=== PATIENT | female | born 1945 | race Caucasian/White ===

== ENCOUNTER 2019-11-13 13:06 | Inpatient (IN) | payer MEDICARE ==
[~2019-11-13] VITALS: Ht 157.4 cm; Wt 71.1 kg
[~2019-11-13 13:06] MED LIST: AZIT-21 PO; EST.625T; ESTR0.5T PO; FLUT1DIS3 IH; IPRA3AMP11 INH; MTP25TSR PO; NF-LEVTH75 PO; PRD50T PO; PRED10TA PO
[2019-11-13] MEDS ORDERED: methylPREDNISolone 125 MG (Solu-MEDROL) VIAL IV STA (13:27)
[2019-11-13] MEDS ORDERED: RT-ALBUTEROL/IPRATROPIUM 3 ML (DUONEB) VIAL INH ONE (13:30)
[2019-11-13] MEDS ORDERED: DEXAMETHASONE 4 MG/ML SDV (DECADRON) IH ONE (13:30)
--- NOTE | 2019-11-13 13:38 | ED Respiratory ---
General Chief Complaint: Respiratory Problems Stated Complaint: SOA Nursing Triage Note: TO ROOM C/O INCREASE SOA WHEN WALKING. PMH OF COPD Source: patient, old records History of Present Illness Date Seen by Provider: Nov 13, 2019 Time Seen by Provider: 13:10 Initial Comments PT ARRIVES VIA POV FROM HOME--AMBULATES IN ON HER OWN C/O SHORTNESS OF BREATH, WORSE WITH EXERTION PT HAS COPD AND WEARS O2 AT 2L/NC AT HS PRN. HAS HAD TO USE O2 MORE OFTEN OVER THE LAST MONTH STATES SHE HAS HAD A PRODUCTIVE COUGH FOR OVER A MONTH--YELLOW SPUTUM WAS SEEN AT DR. DUBON'S OFFICE A MONTH AGO, AND WAS GIVEN RX FOR UNKNOWN ANTIBIOTIC AND A STEROID SHOT. STATES SYMPTOMS WERE GETTING BETTER, BUT WERE NOT GONE. THEN A WEEK OR MORE AGO, STARTED GETTING WORSE AGAIN NO KNOWN FEVER NO CHEST PAIN NO SWELLING IN LEGS/ FEET OR PAIN IN [place] HAS NEBULIZER, AND USED IT AT NOON--HELPED SOME. PCP: DR. DUBON Allergies and Home Medications Allergies Coded Allergies: hydrocodone (Unverified Allergy, Mild, SEVERE VOMITING, 08/05/08) propoxyphene (Unverified Allergy, Mild, SEVERE VOMITING, 08/05/08) Home Medications Albuterol/Ipratropium 3 Ml Nebu, 3 ML INH Q2HR PRN for SHORTNESS OF BREATH Prescribed by: MARÍA DUBON on 04/09/15 0707 Albuterol/Ipratropium 3 Ml Nebu, 3 ML INH RTQID Prescribed by: MARÍA DUBON on 04/09/15 0707 Estradiol 0.5 Mg Tablet, 0.5 MG PO HS, (Reported) Fluticasone/Salmeterol 1 Each Disk.w.dev, 0 IH BID 1 PUFF Prescribed by: NORA MCKEON on 04/09/15 0754 Levothyroxine Sodium 75 Mcg Tab, 75 MCG PO HS, (Reported) Metoprolol Succinate 25 Mg Tab, 25 MG PO HS, (Reported) Prednisone 10 Mg Tablet, 10 MG PO DAILY 60mg daily for 1 day 50mg daily for 1 day 40mg daily for 1 day 30mg daily for 1 day 20mg daily for 1 day 10mg daily for 1 day then stop Prescribed by: NORA MCKEON on 04/09/15 0752 Patient Home Medication List Home Medication List Reviewed: Yes Review of Systems Review of Systems Constitutional: no symptoms reported; No diaphoresis, No dizziness, No fever EENTM: no symptoms reported Respiratory: see HPI, cough, dyspnea on exertion, orthopnea, phlegm, short of breath, wheezing Cardiovascular: no symptoms reported; No chest pain, No edema, No palpitations, No syncope Gastrointestinal: no symptoms reported Genitourinary: no symptoms reported Musculoskeletal: no symptoms reported Skin: no symptoms reported Psychiatric/Neurological: No Symptoms Reported Hematologic/Lymphatic: No Symptoms Reported Immunological/Allergic: no symptoms reported Past Cryenlm-Denafm-Hcurlu Hx Patient Social History Alcohol Use: Denies Use Recreational Drug Use: No Smoking Status: Former Smoker (1 PPD, QUIT 2017) Type Used: Cigarettes (1 PPD, QUIT 2017) Recent Foreign Travel: No Contact w/Someone Who Travel: No Recent Infectious Disease Expo: No Immunizations Up To Date Tetanus Booster (TDap): Unknown Seasonal Allergies Seasonal Allergies: Yes Past Medical History Surgeries: Yes (LEFT INGUINAL HERNIA; HYST/BSO; ) Abdominal, Hysterectomy, Oophorectomy, Tonsillectomy Respiratory: Yes (O2 AT HS PRN) Pneumonia, COPD Cardiac: Yes Hypertension, Syncope Neurological: No Reproductive Disorders: Yes (CERVICAL CANCER--S/P HYST/BSO) 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 History: Hysterectomy Genitourinary: No Gastrointestinal: Yes (LEFT INGUINAL HERNIA REPAIR) Abdominal Hernia Musculoskeletal: Yes Arthritis Endocrine: Yes (WAS HYPERTHYROID--S/P YANCEY [place], NOW HYPOTHYROID) Hyperthyroidism, Hypothyroidsim HEENT: Yes (S/P TONSILLECTOMY) Tonsilitis Cancer: Yes Cervical Did You Recieve Any Treatments: Yes (S/P HYST/BSO) What Type of Treatment Did You: Surgical Intervention Psychosocial: No Integumentary: No Blood Disorders: No Family Medical History Coronary thrombosis 19 FATHER, Onset:Unknown FH: blood disorder daughter, Onset: - FH: hypothyroidism son, Onset:Unknown FH: syncope granddaughter, Onset:15 - FHx: epilepsy 19 MOTHER, Onset:Unknown Kidney stones granddaughter, Onset: - Myocardial infarction 19 FATHER, Onset:Unknown Thyroid disease 19 MOTHER, Onset:Unknown Physical Exam Vital Signs - First Documented 11/13/19 11/13/19 13:06 13:10 Temp 36.6 Pulse 94 Resp 18 B/P (MAP) 142/84 (103) Pulse Ox 96 O2 Delivery Nasal Cannula O2 Flow Rate 2.00 Capillary Refill : Less Than 3 Seconds Height: 5'2.00" Weight: 164lbs. 0.0oz. 74.315338bd; 28.00 BMI Method:Stated General Appearance: WD/WN, no apparent distress, other (TALKS NON-STOP IN FULL SENTENCES, YET IS SLIGHTLY DYSPNEIC WHEN SHE TALKS. ) HEENT: other (EXOPHTHALMOS--LEFT > RIGHT, WITH AMBLYOPIA. ) Neck: normal inspection Respiratory: decreased breath sounds (DECREASED AERATION IN ALL LUNG LEMOS), other (MILDLY DYSPNEIC AT REST, BUT ABLE TO TALK AT LENGTH IN FULL SENTENCES) Cardiovascular: regular rate, rhythm, no edema, no JVD, no murmur Gastrointestinal: non tender, soft Extremities: normal inspection, no pedal edema, normal capillary refill Neurologic/Psychiatric: no motor/sensory deficits, alert, normal mood/affect, oriented x 3 Skin: normal color, warm/dry Focused Exam Lactate Level 11/13/19 13:20: Lactic Acid Level 2.27*H 11/13/19 15:53: Lactic Acid Level 0.98 Lactic Acid Level Laboratory Tests Test 11/13/19 13:20 11/13/19 15:53 Lactic Acid Level 2.27 MMOL/L (0.50-2.00) *H 0.98 MMOL/L (0.50-2.00) Progress/Results/Core Measures Suspected Sepsis Recent Fever Within 48 Hours: No Infection Criteria Present: Suspected New Infection New/Unexplained Altered Menta: No Sepsis Screen: No Definite Risk SIRS Temperature: Pulse: 94 Respiratory Rate: 18 Laboratory Tests 11/13/19 13:20: White Blood Count 6.7 Blood Pressure 142 /84 Mean: 103 11/13/19 13:20: Lactic Acid Level 2.27*H 11/13/19 15:53: Lactic Acid Level 0.98 Laboratory Tests 11/13/19 13:20: Creatinine 0.98, INR Comment 0.9, Platelet Count 284, Total Bilirubin 0.4 Results/Orders Lab Results Laboratory Tests Test 11/13/19 13:20 11/13/19 15:53 Range/Units White Blood Count 6.7 4.3-11.0 10^3/uL Red Blood Count 4.59 4.35-5.85 10^6/uL Hemoglobin 14.1 11.5-16.0 G/DL Hematocrit 41 35-52 % Mean Corpuscular Volume 90 80-99 FL Mean Corpuscular Hemoglobin 31 25-34 PG Mean Corpuscular Hemoglobin Concent 34 32-36 G/DL Red Cell Distribution Width 13.2 10.0-14.5 % Platelet Count 284 130-400 10^3/uL Mean Platelet Volume 9.9 7.4-10.4 FL Neutrophils (%) (Auto) 55 42-75 % Lymphocytes (%) (Auto) 30 12-44 % Monocytes (%) (Auto) 12 0-12 % Eosinophils (%) (Auto) 3 0-10 % Basophils (%) (Auto) 0 0-10 % Neutrophils # (Auto) 3.7 1.8-7.8 X 10^3 Lymphocytes # (Auto) 2.0 1.0-4.0 X 10^3 Monocytes # (Auto) 0.8 0.0-1.0 X 10^3 Eosinophils # (Auto) 0.2 0.0-0.3 10^3/uL Basophils # (Auto) 0.0 0.0-0.1 10^3/uL Prothrombin Time 12.7 12.2-14.7 SEC INR Comment 0.9 0.8-1.4 Activated Partial Thromboplast Time 32 24-35 SEC Sodium Level 134 L 135-145 MMOL/L Potassium Level 4.0 3.6-5.0 MMOL/L Chloride Level 97 L 98-107 MMOL/L Carbon Dioxide Level 23 21-32 MMOL/L Anion Gap 14 5-14 MMOL/L Blood Urea Nitrogen 22 H 7-18 MG/DL Creatinine 0.98 0.60-1.30 MG/DL Estimat Glomerular Filtration Rate 56 BUN/Creatinine Ratio 22 Glucose Level 94 70-105 MG/DL Lactic Acid Level 2.27 *H 0.98 0.50-2.00 MMOL/L Calcium Level 10.0 8.5-10.1 MG/DL Corrected Calcium 9.6 8.5-10.1 MG/DL Magnesium Level 1.8 1.6-2.4 MG/DL Total Bilirubin 0.4 0.1-1.0 MG/DL Aspartate Amino Transf (AST/SGOT) 19 5-34 U/L Alanine Aminotransferase (ALT/SGPT) 14 0-55 U/L Alkaline Phosphatase 77 40-136 U/L Total Creatine Kinase 140 29-168 U/L Creatine Kinase MB 8.8 *H <6.6 NG/ML Troponin I < 0.028 <0.028 NG/ML B-Type Natriuretic Peptide 19.9 <100.0 PG/ML Total Protein 7.6 6.4-8.2 GM/DL Albumin 4.5 3.2-4.5 GM/DL Free Thyroxine 1.03 0.70-1.48 NG/DL TSH [place] Testing 5.15 H 0.35-4.94 UIU/ML Micro Results Microbiology 11/13/19 Influenza Types A,B Antigen (CARISSA) - Final, Complete My Orders Orders - GERSON SINGLETARY DO Ed Iv/Invasive Line Start (11/13/19 13:27) Ekg Tracing (11/13/19 13:27) O2 (11/13/19 13:27) Monitor-Rhythm Ecg Trace Only (11/13/19 13:27) Chest Pa/Lat (2 View) (11/13/19 13:27) BNP (11/13/19 13:27) Cbc With Automated Diff (11/13/19 13:27) Comprehensive Metabolic Panel (11/13/19 13:27) Creatine Kinase (11/13/19 13:27) Creatine Kinase Mb (11/13/19 13:27) Lactic Acid Analyzer (11/13/19 13:27) Magnesium (11/13/19 13:27) Protime With Inr (11/13/19 13:27) Partial Thromboplastin Time (11/13/19 13:27) Thyroid Analyzer (11/13/19 13:27) Blood Culture (11/13/19 13:27) Influenza A And B Antigens (11/13/19 13:27) Troponin I (11/13/19 13:27) Albuterol/Ipra Inhalation Soln (Duoneb I (11/13/19 13:30) Dexamethasone Injection (Decadron Inject (11/13/19 13:30) Rt Request For Service (11/13/19 13:27) Methylprednisolone Sod Succ (Solu-Medrol (11/13/19 13:27) Svn Small Volume Nebulizer (11/13/19 13:27) Free T4 (Free Thyroxine) (11/13/19 13:20) Ed Iv/Invasive Line Start (11/13/19 14:30) Ns Iv 1000 Ml (Sodium Chloride 0.9%) (11/13/19 14:30) Ct Angio Chest W (11/13/19 14:30) Ceftriaxone For Iv Use (Rocephin For I (11/13/19 14:45) Azithromycin Injection (Zithromax Inject (11/13/19 14:45) Iohexol Injection (Omnipaque 350 Mg/Ml 1 (11/13/19 14:45) Received Contrast (Hold Metformin- Contr (11/13/19 14:45) Ns (Ivpb) (Sodium Chloride 0.9% Ivpb Bag (11/13/19 14:45) Medications Given in ED Current Medications Medications Dose Ordered Sig/Maikol Route Start Time Stop Time Status Last Admin Dose Admin Albuterol/ Ipratropium 3 ml ONCE ONCE INH 11/13/19 13:30 11/13/19 13:31 DC 11/13/19 13:42 3 ML Azithromycin 500 mg/Sodium Chloride 250 ml @ 250 mls/hr ONCE ONCE IV 11/13/19 14:45 11/13/19 15:44 DC 11/13/19 15:09 250 MLS/HR Ceftriaxone Sodium 1000 mg/ Sterile Water 10 ml @ 200 mls/hr ONCE ONCE IV 11/13/19 14:45 11/13/19 14:47 DC 11/13/19 15:07 200 MLS/HR Dexamethasone Sodium Phosphate 20 mg ONCE ONCE IH 11/13/19 13:30 11/13/19 13:31 DC 11/13/19 13:42 20 MG Iohexol 100 ml ONCE ONCE IV 11/13/19 14:45 11/13/19 14:47 DC 11/13/19 15:02 100 ML Sodium Chloride 100 ml ONCE ONCE IV 11/13/19 14:45 11/13/19 14:47 DC 11/13/19 15:02 80 ML Vital Signs/I&O 11/13/19 11/13/19 11/13/19 13:06 13:10 13:43 Temp 36.6 Pulse 94 Resp 18 B/P (MAP) 142/84 (103) Pulse Ox 96 91 O2 Delivery Nasal Cannula Room Air Nasal Cannula O2 Flow Rate 2.00 2.00 Capillary Refill : Less Than 3 Seconds Blood Pressure Mean: 103 Progress Note : Progress Note O2 SATS UP TO MID 90'S ON O2 AT 2L/NC INCREASED AERATION AFTER NEB TREATMENT, PT STATES SHE FEELS BETTER NO DETERIORATION IN PT'S CONDITION DURING ER STAY ECG Initial ECG Impression Date: Nov 13, 2019 Initial ECG Impression Time: 14:01 Initial ECG Rate: 78 Initial ECG Rhythm: Normal Sinus Initial ECG Impression: Nonspecific Changes Diagnostic Imaging Comments CXR--NO ACUTE PROCESS, CHRONIC CHANGES, PER RADIOLOGIST REPORT AT 1429 CT CHEST ANGIOGRAM--CHRONIC / STABLE CHANGES, NO ACUTE PROCESS, PER RADIOLOGIST REPORT AT 1514 Reviewed: Reviewed by Co Departure Communication (Admissions) 1515--ATTEMPTING TO CONTACT DR. BCEKER, MESSAGE LEFT ON MACHINE 1529--MESSAGE LEFT ON DR. BECKER'S CELL 1541--MESSAGE LEFT ON DR. BECKER'S CELL 1604--CALLED AND SPOKE WITH DR. BECKER, ACCEPTS PT FOR ADMIT. Impression Primary Impression: COPD exacerbation Additional Impression: Hypoxia Disposition: ADMITTED INPATIENT Condition: Stable Admissions Decision to Admit Reason: Admit from ER (General) Decision to Admit/Date: Nov 13, 2019 Time/Decision to Admit Time: 15:15 Departure-Patient Inst. Referrals: BRITTNI DUBON MD (PCP/Family) Primary Care Physician GERSON SINGLETARY DO Nov 13, 2019 13:38
[2019-11-13 13:44] LABS: BASOPHILS % (AUTO) 0 % (0-10); EOSINOPHILS # (AUTO) 0.2 10^3/uL (0.0-0.3); EOSINOPHILS % (AUTO) 3 % (0-10); HEMATOCRIT 41 % (35-52); HEMOGLOBIN 14.1 G/DL (11.5-16.0); LYMPHOCYTES % (AUTO) 30 % (12-44); MEAN CORPUSCULAR HEMOGLOBIN 31 PG (25-34); MEAN CORPUSCULAR HGB CONC 34 G/DL (32-36); MEAN CORPUSCULAR VOLUME 90 FL (80-99); MEAN PLATELET VOLUME 9.9 FL (7.4-10.4); MONOCYTES # (AUTO) 0.8 X 10^3 (0.0-1.0); MONOCYTES % (AUTO) 12 % (0-12); NEUTROPHILS # (AUTO) 3.7 X 10^3 (1.8-7.8); NEUTROPHILS % (AUTO) 55 % (42-75); PLATELET COUNT 284 10^3/uL (130-400); RED CELL DISTRIBUTION WIDTH 13.2 % (10.0-14.5); WHITE BLOOD COUNT 6.7 10^3/uL (4.3-11.0)
[2019-11-13 13:55] LABS: INR 0.9 (0.8-1.4); PROTHROMBIN TIME PATIENT 12.7 SEC (12.2-14.7)
[2019-11-13 14:03] LABS: ALANINE AMINOTRANSFERASE 14 U/L (0-55); ALBUMIN 4.5 GM/DL (3.2-4.5); ALKALINE PHOSPHATASE 77 U/L (40-136); BILIRUBIN,TOTAL 0.4 MG/DL (0.1-1.0); BUN/CREATININE RATIO 22; CARBON DIOXIDE 23 MMOL/L (21-32); CHLORIDE 97 MMOL/L (98-107); CREATINE KINASE 140 U/L (29-168); CREATININE SERUM 0.98 MG/DL (0.60-1.30); GFR ESTIMATED 56; GLUCOSE 94 MG/DL (70-105); MAGNESIUM 1.8 MG/DL (1.6-2.4); SODIUM 134 MMOL/L (135-145); TOTAL PROTEIN 7.6 GM/DL (6.4-8.2)
[2019-11-13 14:24] LABS: TSH (THYROID ANALYZER) 5.15 UIU/ML (0.35-4.94)
--- NOTE | 2019-11-13 14:26 | Diagnostic Imaging Report ---
INDICATION: Shortness of air. COMPARISON: 05/03/2015 FINDINGS: Frontal and lateral views of the chest demonstrate normal heart size and pulmonary vascularity. Lungs show hyperinflation with mild diffuse coarse prominence of the interstitium. There is no new focal consolidation, large effusion, nor pneumothorax. Benign calcified granuloma is again noted within the right mid to lower lung field. Osseous structures show no gross acute abnormalities. IMPRESSION: 1. No evidence of failure or focal infiltrate. 2. Hyperinflated appearance of the lungs. Please correlate with history of background obstructive pulmonary disease. 3. Benign calcified granuloma on the right. Dictated by: Dictated on workstation # [id number]
[2019-11-13 14:28] LABS: CREATINE KINASE MB 8.8 NG/ML (<6.6)
[2019-11-13] MEDS ORDERED: NS IV 1000 ML 1,000 ML IV SCH (14:30)
[2019-11-13] MEDS ORDERED: NS 100 ML (IVPB) BAG IV ONE (14:45)
[2019-11-13] MEDS ORDERED: HOLD METFORMIN - RECEIVED CONTRAST 20 ML VIAL IV SCH (14:45)
[2019-11-13] MEDS ORDERED: IOHEXOL 350 MG/ML 100 ML (OMNIPAQUE 350) VIAL IV ONE (14:45)
[2019-11-13] MEDS ORDERED: AZITHROMYCIN INJECTION 500 MG in NS (IVPB) 250 ML IV ONE (14:45)
[2019-11-13] MEDS ORDERED: cefTRIAXone FOR IV USE 1,000 MG in WATER (STERILE) FOR INJECTION 10 ML IV ONE (14:45)
[2019-11-13 14:58] LABS: FREE T4 (FREE THYROXINE) 1.03 NG/DL (0.70-1.48)
--- NOTE | 2019-11-13 15:10 | Diagnostic Imaging Report ---
PROCEDURE: CT angiography of the chest with contrast. TECHNIQUE: Multiple contiguous axial images were obtained through the chest after uneventful bolus administration of intravenous contrast. 3D reconstructed CTA MIP acquisitions were also performed. Auto Exposure Controls were utilized during the CT exam to meet ALARA standards for radiation dose reduction. INDICATION: Shortness of breath and cough. COMPARISON: Correlation is made with prior CT chest from 06/10/2015. FINDINGS: Evaluation of the pulmonary arterial system is without thromboembolism. No definite filling defects are seen within central, lobar or segmental branches. The thoracic aorta is normal caliber. There are atherosclerotic changes throughout the aorta. No pericardial or pleural fluid is detected. Centrilobular emphysematous changes are noted in both lungs. Calcified lesion in the right middle lobe appears stable. No noncalcified mass or infiltrate is detected. Upper abdomen is unremarkable. Bony structures are nonacute. IMPRESSION: No evidence of pulmonary embolism or thoracic aortic dissection. CT chest is stable when compared with examination from 06/10/2015. Dictated by: Dictated on workstation # [id number]
[2019-11-13 17:24] VITALS: BP 154/63
[2019-11-13] MEDS ORDERED: CATHETER FLUSH 10 ML SYR IV PRN (18:00)
[2019-11-13] MEDS ORDERED: ENOXAPARIN 40 MG/0.4 ML (LOVENOX) SYR SC SCH (18:00)
[2019-11-13] MEDS ORDERED: ANTACID SUSP 30 ML UDC (MYLANTA) PO PRN (18:00)
[2019-11-13] MEDS ORDERED: RT-ALBUTEROL/IPRATROPIUM 3 ML (DUONEB) VIAL INH SCH (18:00)
[2019-11-13] MEDS ORDERED: ONDANSETRON 4 MG (ZOFRAN) ORAL DISSOLVE TAB PO PRN (18:00)
[2019-11-13] MEDS ORDERED: POLYETHYLENE GLYCOL 17 GM (MIRALAX) PACK PO PRN (18:00)
[2019-11-13] MEDS ORDERED: MELATONIN 3 MG TABLET PO PRN (18:00)
[2019-11-13] MEDS ORDERED: 1/2 NS IV SOLUTION 1,000 ML IV SCH (18:00)
[2019-11-13] MEDS ORDERED: ACETAMINOPHEN 500 MG TAB (TYLENOL) PO PRN (18:00)
[2019-11-13] MEDS ORDERED: ONDANSETRON 4 MG/2 ML (SDV) Z0FRAN IV PRN (18:00)
[2019-11-13] MEDS ORDERED: ACETAMINOPHEN 325 MG TABLET PO PRN (18:00)
[2019-11-13] MEDS ORDERED: BISACODYL 10 MG SUPP (DULCOLAX) PR PRN (18:00)
[2019-11-13 19:51] VITALS: BP 142/84
[2019-11-13] MEDS ORDERED: methylPREDNISolone 125 MG (Solu-MEDROL) VIAL IV SCH (20:00)
[2019-11-13 20:09] VITALS: BP 129/68
[2019-11-13] MEDS ORDERED: RT-ALBUTEROL/IPRATROPIUM 3 ML (DUONEB) VIAL INH PRN (20:15)
[2019-11-13] MEDS: SENNOSIDES 8.6 MG (SENOKOT) TAB PO SCH (20:23)
[2019-11-13] MEDS: DOCUSATE SODIUM 100 MG (COLACE) CAP PO SCH (20:23)
[2019-11-13] MEDS: inSUlin ASPART (NovoLOG) 1 UNIT/0.01 ML (CHARGE PER UNIT) SC SCH (20:25)
[2019-11-13] MEDS: CATHETER FLUSH 10 ML SYR IV SCH (22:00)
[2019-11-14 00:50] VITALS: BP 146/68
[2019-11-14] MEDS: RT-ALBUTEROL/IPRATROPIUM 3 ML (DUONEB) VIAL INH SCH ×2 (02:16→07:13)
[2019-11-14 03:35] VITALS: BP 132/62
[2019-11-14] MEDS: inSUlin ASPART (NovoLOG) 1 UNIT/0.01 ML (CHARGE PER UNIT) SC SCH ×2 (06:06→11:11)
[2019-11-14] MEDS: CATHETER FLUSH 10 ML SYR IV SCH ×2 (06:06→13:39)
[2019-11-14] MEDS ORDERED: predniSONE 20 MG TAB PO SCH (07:00)
[2019-11-14 07:12] LABS: BASOPHILS % (AUTO) 0 % (0-10); EOSINOPHILS % (AUTO) 0 % (0-10); HEMATOCRIT 38 % (35-52); HEMOGLOBIN 12.6 G/DL (11.5-16.0); LYMPHOCYTES # (AUTO) 1.1 X 10^3 (1.0-4.0); LYMPHOCYTES % (AUTO) 16 % (12-44); MEAN CORPUSCULAR HEMOGLOBIN 30 PG (25-34); MEAN CORPUSCULAR HGB CONC 33 G/DL (32-36); MEAN CORPUSCULAR VOLUME 90 FL (80-99); MEAN PLATELET VOLUME 9.9 FL (7.4-10.4); MONOCYTES # (AUTO) 0.4 X 10^3 (0.0-1.0); MONOCYTES % (AUTO) 6 % (0-12); NEUTROPHILS # (AUTO) 5.6 X 10^3 (1.8-7.8); NEUTROPHILS % (AUTO) 78 % (42-75); PLATELET COUNT 244 10^3/uL (130-400); RED CELL DISTRIBUTION WIDTH 13.4 % (10.0-14.5); WHITE BLOOD COUNT 7.2 10^3/uL (4.3-11.0)
[2019-11-14 07:28] LABS: BUN/CREATININE RATIO 23; CALCIUM 9.1 MG/DL (8.5-10.1); CARBON DIOXIDE 21 MMOL/L (21-32); CHLORIDE 100 MMOL/L (98-107); CREATININE SERUM 0.84 MG/DL (0.60-1.30); GFR ESTIMATED > 60; GLUCOSE 129 MG/DL (70-105); POTASSIUM 4.1 MMOL/L (3.6-5.0); SODIUM 133 MMOL/L (135-145)
[2019-11-14 08:00] VITALS: BP 122/56
[2019-11-14] MEDS: SENNOSIDES 8.6 MG (SENOKOT) TAB PO SCH (08:48)
[2019-11-14] MEDS: DOCUSATE SODIUM 100 MG (COLACE) CAP PO SCH (08:48)
[2019-11-14] MEDS ORDERED: AZITHROMYCIN 250 MG TAB (ZITHROMAX) PO SCH (09:00)
[2019-11-14] MEDS ORDERED: METO-387 PO (09:19)
[2019-11-14] MEDS ORDERED: LEVO75TA6 PO (09:19)
[2019-11-14] MEDS ORDERED: LOSA100T57 PO (09:20)
[2019-11-14] MEDS ORDERED: MELO15TA39 PO (09:20)
[2019-11-14] MEDS ORDERED: CALC-654 PO (09:20)
[2019-11-14] MEDS ORDERED: ESTR0.5T3 PO (09:20)
[2019-11-14] MEDS ORDERED: OMEP20CA13 PO (09:20)
[2019-11-14] MEDS ORDERED: RT-ALBUINH IH (09:23)
[2019-11-14] MEDS ORDERED: IPRA3AMP31 NEB ×2 (09:23)
[2019-11-14] MEDS ORDERED: AMLO10TA7 PO (09:23)
--- NOTE | 2019-11-14 09:29 | NUR ---
SPOKE WITH THE PATIENT ABOUT HER MEDICATIONS. SHE HAD A LIST WITH HER AND I ALSO CALLED [facility] FOR A LIST OF RECENTLY FILLED MEDICATIONS. [facility] FILLED: 11-13-19 PROAIR INHALER 2 PUFFS QID (STATES SHE ONLY TAKES IT PRN) 11-13-19 DUONEB QID AND Q2H PRN (STATES SHE ONLY USES THIS PRN) 08-26-19 LEVOTHYROXINE 75MCG DAILY #08-26-19 ESTRADIOL 0.5MG DAILY #08-26-19 METOPROLOL ER 25MG DAILY #08-26-19 MELOXICAM 15MG DAILY #90 08-26-19 LOSARTAN 100MG DAILY #08-26-19 AMLODIPINE 10MG DAILY #08-26-19 OMEPRAZOLE 20MG DAILY #90 SHE TAKES CALCIUM + D 500MG DAILY OTC.
--- NOTE | 2019-11-14 09:47 | NUR ---
ENTERED ROOM PATIENT HAD OXYGEN OFF AND STATED HAD RECENTLY BEEN TO THE BATHROOM OXYGEN SAT WAS 83% REPLACED OXYGEN ON PATIENT AT 2 L/M SAT CAME UP TO 90% RECEMENTED CONTINUOS OXYGEN AT 2-4 L/M Addendum: 11/14/19 at 0948 by JENNA RAMIREZ RT Amended: Links added.
[2019-11-14] MEDS ORDERED: PRD20T PO (10:22)
[2019-11-14 12:00] VITALS: BP 125/58
--- NOTE | 2019-11-14 14:10 | Discharge Summary ---
Discharge Summary Hospital Course Was the Problem List Reviewed?: Yes Final Diagnosis: COPD with acute exacerbation Hospital Course Date of Admission: Nov 13, 2019 at 16:08 Admission Diagnosis : COPD with acute exacerbation Family Physician/Provider: Bishop Valles MD Date of Discharge: 11/14/19 Discharge Diagnosis: COPD with acute exacerbation Hospital Course: Maryellen Vizcarra is a 74-year-old female with past medical history of COPD who presented with shortness of breath and is admitted with a COPD exacerbation. She uses oxygen at night but does not normally wear continuously. She had been wearing it during the day. She also had a worsening cough with yellow sputum production. There workup was negative for pneumonia. She was given a course of prednisone. An oxygen evaluation was performed and she was determined need to liters continuously. She will follow-up with her primary care physician in one week. Labs and Pending Lab Test: Laboratory Tests 11/13/19 15:53: Lactic Acid Level 0.98 11/13/19 20:15: Glucometer 258H 11/14/19 05:10: Glucometer 137H 11/14/19 05:45: White Blood Count 7.2, Red Blood Count 4.19L, Hemoglobin 12.6, Hematocrit 38, Mean Corpuscular Volume 90, Mean Corpuscular Hemoglobin 30, Mean Corpuscular Hemoglobin Concent 33, Red Cell Distribution Width 13.4, Platelet Count 244, Mean Platelet Volume 9.9, Neutrophils (%) (Auto) 78H, Lymphocytes (%) (Auto) 16, Monocytes (%) (Auto) 6, Eosinophils (%) (Auto) 0, Basophils (%) (Auto) 0, Neutrophils # (Auto) 5.6, Lymphocytes # (Auto) 1.1, Monocytes # (Auto) 0.4, Eosinophils # (Auto) 0.0, Basophils # (Auto) 0.0 11/14/19 06:45: Sodium Level 133L, Potassium Level 4.1, Chloride Level 100, Carbon Dioxide Level 21, Anion Gap 12, Blood Urea Nitrogen 19H, Creatinine 0.84, Estimat Glomerular Filtration Rate > 60, BUN/Creatinine Ratio 23, Glucose Level 129H, Calcium Level 9.1 11/14/19 10:49: Glucometer 196H Microbiology 11/13/19 Influenza Types A,B Antigen (CARISSA) - Final, Complete Home Meds Active Prednisone 20 Mg Tab 40 Mg PO DAILY@0700 3 Days Reported Proair Hfa (Albuterol Sulfate) 1 Puff Puff 2 Puff IH QID PRN 1 PUFF = 90 MCG Iprat-Albut 0.5-3(2.5) mg/3 ml (Ipratropium/Albuterol Sulfate) 3 Ml Ampul.neb 3 Ml NEB Q2H PRN Amlodipine Besylate 10 Mg Tablet 10 Mg PO DAILY Omeprazole 20 Mg Capsule.dr 20 Mg PO DAILY Losartan Potassium 100 Mg Tablet 100 Mg PO DAILY Meloxicam 15 Mg Tablet 15 Mg PO DAILY Calcium 500 + D Tablet (Calcium Carbonate/Vitamin D3) 1 Each Tablet 1 Tab PO DAILY Estrace Tablet (Estradiol) 0.5 Mg Tablet 0.5 Mg PO DAILY Metoprolol Succinate 25 Mg Tab.er.24h 25 Mg PO DAILY Levothyroxine Sodium 75 Mcg Tablet 75 Mcg PO DAILY Assessment/Pt Instructions take medications as prescribed. Use your oxygen continuously at 2 L. Follow-up with your primary care physician in one to 2 weeks. Discharge Instructions Discharge Diet: No Restrictions Activity as Tolerated: Yes Pneumonia Vaccine Order Indica: Yes Discharge Physical Examination Allergies: Coded Allergies: hydrocodone (Unverified Allergy, Mild, SEVERE VOMITING, 08/05/08) propoxyphene (Unverified Allergy, Mild, SEVERE VOMITING, 08/05/08) Copy Copies To 1: BISHOP VALLES MD Discharge Summary Date of Admission Nov 13, 2019 at 16:08 Date of Discharge Discharge Date: Nov 14, 2019 Discharge Time: 14:10 Admission Diagnosis COPD with acute exacerbation Discharge Diagnosis (1) COPD exacerbation Status: Acute Clinical Quality Measures DVT/VTE Risk/Contraindication: Risk Factor Score Per Nursin RFS Level Per Nursing on Admit: 4+=Very High ANISH BECKER MD Nov 14, 2019 14:10
[2019-11-14] MEDS ORDERED: cefTRIAXone 1,000 MG/SWFI 10 ML IV PUSH IV SCH ×2 (15:00)
== END 2019-11-14 15:30 | disposition home or self-care (01) | DRG 192 ==
LOC: EDUNIT# 13:06 → ER 13:07 → 4TH 16:08
PROVIDERS: ADMIT Internal Medicine; ATTEND Family Medicine
DX: J44.1 Chronic obstructive pulmonary disease with (acute) exacerbation (principal); I10 Essential (primary) hypertension; M19.90 Unspecified osteoarthritis, unspecified site; E03.9 Hypothyroidism, unspecified; Z87.891 Personal history of nicotine dependence; Z90.710 Acquired absence of both cervix and uterus; Z87.01 Personal history of pneumonia (recurrent); Z85.41 Personal history of malignant neoplasm of cervix uteri
CPT/HCPCS: 36415; 71046; 71275; 80048; 80053; 82550; 82553; 82962; 83605; 83735; 83880; 84145; 84439; 84443; 84484; 85025; 85610; 85730; 87040; 87804; 93005; 93041; 94640; 94664; 94760

== ENCOUNTER → 2021-05-20 | Outpatient (CLI) | payer MEDICARE ==
[~2021-05-20] MED LIST changes: +AMLO-251 PO; +CALC-654 PO; +ESTR0.5T3 PO; +IPRA3AMP31 NEB; +LEVO75TA6 PO; +LOSA100T57 PO; +MELO15TA39 PO; +OMEP20CA18 PO; +PRD20T PO; +RT-ALBUINH IH
--- NOTE | 2021-05-20 11:05 | Diagnostic Imaging Report ---
PROCEDURE: CT head without contrast. TECHNIQUE: Multiple contiguous axial images were obtained through the brain without the use of intravenous contrast. Auto Exposure Controls were utilized during the CT exam to meet ALARA standards for radiation dose reduction. INDICATION: Eye lid retraction, carotid artery stenosis. No prior studies are available for comparison. Ventricles and sulci are within normal limits. No sulcal effacement or midline shift is identified. No acute intra-axial or extra-axial hemorrhage is detected. Cisterns are patent. Visualized paranasal sinuses are clear. Patient does demonstrate bilateral proptosis. There also appears to be extraocular muscle involvement, particularly the medial rectus, superior rectus and inferior rectus. Lateral rectus appears to be spared. No definite orbital mass is detected. There does appear to be a lacrimal gland enlargement. IMPRESSION: 1. No acute intracranial process is detected. 2. Proptosis. 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 Dictated by: Dictated on workstation # [id number]
== END ==
LOC: RAD 10:15
PROVIDERS: ATTEND Optometrist
DX: H02.531 Eyelid retraction right upper eyelid (principal); H02.534 Eyelid retraction left upper eyelid; H50.53 Vertical heterophoria; H52.03 Hypermetropia, bilateral; I65.29 Occlusion and stenosis of unspecified carotid artery
CPT/HCPCS: 70450

== ENCOUNTER → 2021-07-07 | Outpatient (CLI) | payer MEDICARE | LOC: LAB 12:43 | DX: H05.89 Other disorders of orbit (principal) | CPT/HCPCS: 36415; 84445; 86376 ==

== ENCOUNTER 2021-09-23 15:14 | Emergency (ER) | payer MEDICARE ==
[~2021-09-23] VITALS: Ht 62 cm; Wt 70.8 kg
[2021-09-23 15:29] VITALS: BP_SYST 122; BP_SYST 133; BP_SYST 138; BP_DIAS 52; BP_DIAS 59; BP_DIAS 67
[2021-09-23] MEDS ORDERED: NS IV 500 ML 500 ML IV ONE (15:30)
--- NOTE | 2021-09-23 15:33 | ED Syncope ---
General Stated Complaint: DIZZINESS Source of Information: Patient, EMS Exam Limitations: No Limitations History of Present Illness Date Seen by Provider: Sep 23, 2021 Time Seen by Provider: 15:15 Initial Comments Patient to the ER by EMS from [facility] with chief complaint she was in the line back to pay for her goods when she felt lightheaded like she was going to pass out. She asked for a chair and someone who was standing behind her helped lower her to the ground put a pillow under her head. She says she is not sure she fully passed out. She been having the symptoms for the past month since she got an influenza shot. She says sometimes she feels like her heart is skipping a beat but has never had this worked up. 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 No known history of atrial fibrillation SVT etc. She is not having any chest pain nausea vomiting fevers chills cough shortness of air or weakness. EMS remarks by the time they arrived she was sitting up feeling much better speaking in full sentences and they did not complete an Accu-Chek or EKG at that time. She was able to get up and walk to the [facility]. She did not want to go with them however her daughter arrived and insisted she go to the ER to be checked out. Patient denies alcohol drugs or tobacco use. Patient denies diabetes. PCP Faisal Hinton at [facility]. No work-up underway for her syncopal episodes yet. Echocardiogram [address] Gunderson demonstrating moderate concentric left hypertrophy with EF of 70% and diastolic dysfunction noted. Allergies and Home Medications Allergies Coded Allergies: hydrocodone (Unverified Allergy, Mild, SEVERE VOMITING, 08/05/08) propoxyphene (Unverified Allergy, Mild, SEVERE VOMITING, 08/05/08) Patient Home Medication List Home Medication List Reviewed: Yes Albuterol Sulfate (Proair Hfa) 1 Puff Puff, 2 PUFF IH QID PRN for SHORTNESS OF BREATH, (Reported) Entered as Reported by: LUCIO LAMAR on 11/14/19922 Amlodipine Besylate (Amlodipine Besylate) 10 Mg Tablet, 10 MG PO DAILY, (Reported) Entered as Reported by: LUCIO LAMAR on 11/14/19922 Calcium Carbonate/Vitamin D3 (Calcium 500 + D Tablet) 1 Each Tablet, 1 TAB PO DAILY, (Reported) Entered as Reported by: LUCIO LAMAR on 11/14/19919 Estradiol (Estrace Tablet) 0.5 Mg Tablet, 0.5 MG PO DAILY, (Reported) Entered as Reported by: LUCIO LAMAR on 11/14/19919 Ipratropium/Albuterol Sulfate (Iprat-Albut 0.5-3(2.5) mg/3 ml) 3 Ml Ampul.neb, 3 ML NEB Q2H PRN for SHORTNESS OF BREATH, (Reported) Entered as Reported by: LUCIO LAMAR on 11/14/19922 Levothyroxine Sodium (Levothyroxine Sodium) 75 Mcg Tablet, 75 MCG PO DAILY, (Reported) Entered as Reported by: LUCIO LAMAR on 11/14/19918 Losartan Potassium (Losartan Potassium) 100 Mg Tablet, 100 MG PO DAILY, (Reported) Entered as Reported by: LUCIO LAMAR on 11/14/19919 Meloxicam (Meloxicam) 15 Mg Tablet, 15 MG PO DAILY, (Reported) Entered as Reported by: LUCIO LAMAR on 11/14/19919 Metoprolol Succinate (Metoprolol Succinate) 25 Mg Tab.er.24h, 25 MG PO DAILY, (Reported) Entered as Reported by: LUCIO LAMAR on 11/14/19918 Omeprazole (Omeprazole) 20 Mg Capsule.dr, 20 MG PO DAILY, (Reported) Entered as Reported by: LUCIO LAMAR on 11/14/19919 Prednisone (Prednisone) 20 Mg Tab, 40 MG PO DAILY@0700 Prescribed by: RED SUTTON on 11/14/19 1022 Review of Systems Constitutional: No chills; dizziness; No fever EENTM: No ear discharge, No ear pain Respiratory: No cough, No phlegm Cardiovascular: No chest pain, No palpitations Gastrointestinal: No abdominal pain, No nausea : No Control/STD Prophylaxis: None Musculoskeletal: No back pain, No joint pain All Other Systems Reviewed Negative Unless Noted: Yes Past Aclppsx-Jvqtvm-Jwylzr Hx Patient Social History Tobacco Use?: No Use of E-Cig and/or Vaping dev: No Substance use?: No Alcohol Use?: No Immunizations Up To Date Tetanus Booster (TDap): Unknown Seasonal Allergies Seasonal Allergies: Yes Past Medical History Surgeries: Yes (LEFT INGUINAL HERNIA; HYST/BSO; ) Abdominal, Hysterectomy, Oophorectomy, Tonsillectomy Respiratory: Yes (O2 AT HS PRN) Pneumonia, COPD Cardiac: Yes Hypertension, Syncope Neurological: No Reproductive Disorders: Yes (CERVICAL CANCER--S/P HYST/BSO) 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 Genitourinary: No Gastrointestinal: Yes (LEFT INGUINAL HERNIA REPAIR) Abdominal Hernia Musculoskeletal: Yes Arthritis Endocrine: Yes (WAS HYPERTHYROID--S/P YANCEY [place], NOW HYPOTHYROID) Hyperthyroidism, Hypothyroidsim HEENT: Yes (S/P TONSILLECTOMY) Tonsilitis Cancer: Yes Cervical Did You Recieve Any Treatments: Yes What Type of Treatment Did You: Surgical Intervention Psychosocial: No Integumentary: No Blood Disorders: No Family Medical History Coronary thrombosis 19 FATHER, Onset:Unknown FH: blood disorder daughter, Onset: - FH: hypothyroidism son, Onset:Unknown FH: syncope granddaughter, Onset: - FHx: epilepsy 19 MOTHER, Onset:Unknown Kidney stones granddaughter, Onset: Myocardial infarction 19 FATHER, Onset:Unknown Thyroid disease 19 MOTHER, Onset:Unknown Physical Exam Vital Signs Vital Signs - First Documented 09/23/21 15:15 Temp 36.6 Pulse 87 Resp 20 B/P (MAP) 144/69 (94) Pulse Ox 95 O2 Delivery Room Air Capillary Refill : Height, Weight, BMI Height: 5'2.00" Weight: 164lbs. 0.0oz. [id number]; 28.77 BMI Method:Stated General Appearance: No Apparent Distress, WD/WN HEENT: PERRL/EOMI; No Moist Mucous Membranes Neck: Full Range of Motion, Normal Inspection Cardiovascular: Regular Rate, Rhythm, No Edema, Normal Peripheral Pulses Respiratory: Lungs Clear, Normal Breath Sounds, No Accessory Muscle Use, No Respiratory Distress Gastrointestinal: Normal Bowel Sounds, Non Tender, Soft Extremities: Normal Capillary Refill, Normal Inspection, No Pedal Edema Neurologic/Psychiatric: Alert, Oriented x3 Cranial Nerves: Normal Hearing, Normal Speech, PERRL Coordination/Gait: Normal Finger to Nose, Normal Gait Motor/Sensory: No Motor Deficit, No Sensory Deficit, No Pronator Drift, Other (NIH of 0 points.) Skin: Normal Color, Warm/Dry Progress/Results/Core Measures Results/Orders Lab Results Laboratory Tests Test 09/23/21 15:27 09/23/21 15:37 Range/Units White Blood Count 8.0 4.3-11.0 10^3/uL Red Blood Count 4.69 3.80-5.11 10^6/uL Hemoglobin 14.6 11.5-16.0 g/dL Hematocrit 43 35-52 % Mean Corpuscular Volume 92 80-99 fL Mean Corpuscular Hemoglobin 31 25-34 pg Mean Corpuscular Hemoglobin Concent 34 32-36 g/dL Red Cell Distribution Width 13.7 10.0-14.5 % Platelet Count 261 130-400 10^3/uL Mean Platelet Volume 9.8 9.0-12.2 fL Immature Granulocyte % (Auto) 0 % Neutrophils (%) (Auto) 55 42-75 % Lymphocytes (%) (Auto) 31 12-44 % Monocytes (%) (Auto) 11 0-12 % Eosinophils (%) (Auto) 2 0-10 % Basophils (%) (Auto) 1 0-10 % Neutrophils # (Auto) 4.4 1.8-7.8 10^3/uL Lymphocytes # (Auto) 2.5 1.0-4.0 10^3/uL Monocytes # (Auto) 0.9 0.0-1.0 10^3/uL Eosinophils # (Auto) 0.1 0.0-0.3 10^3/uL Basophils # (Auto) 0.1 0.0-0.1 10^3/uL Immature Granulocyte # (Auto) 0.0 0.0-0.1 10^3/uL Sodium Level 137 135-145 MMOL/L Potassium Level 4.4 3.6-5.0 MMOL/L Chloride Level 98 98-107 MMOL/L Carbon Dioxide Level 24 21-32 MMOL/L Anion Gap 15 H 5-14 MMOL/L Blood Urea Nitrogen 22 H 7-18 MG/DL Creatinine 1.20 0.60-1.30 MG/DL Estimat Glomerular Filtration Rate 44 BUN/Creatinine Ratio 18 Glucose Level 119 H 70-105 MG/DL Glucometer 127 H 70-110 MG/DL Calcium Level 9.8 8.5-10.1 MG/DL Corrected Calcium 9.6 8.5-10.1 MG/DL Total Bilirubin 0.5 0.1-1.0 MG/DL Aspartate Amino Transf (AST/SGOT) 15 5-34 U/L Alanine Aminotransferase (ALT/SGPT) 10 0-55 U/L Alkaline Phosphatase 64 40-136 U/L Troponin I < 0.028 <0.028 NG/ML C-Reactive Protein High Sensitivity 0.04 0.00-0.50 MG/DL B-Type Natriuretic Peptide 51.2 <100.0 PG/ML Total Protein 6.9 6.4-8.2 GM/DL Albumin 4.2 3.2-4.5 GM/DL Serum Alcohol < 10 <10 MG/DL Urine Color YELLOW Urine Clarity SL CLOUDY Urine pH 6.0 5-9 Urine Specific Adams 1.025 H 1.016-1.022 Urine Protein TRACE H NEGATIVE Urine Glucose (UA) NEGATIVE NEGATIVE Urine Ketones TRACE H NEGATIVE Urine Nitrite NEGATIVE NEGATIVE Urine Bilirubin NEGATIVE NEGATIVE Urine Urobilinogen 0.2 < = 1.0 MG/DL Urine Leukocyte Esterase 1+ H NEGATIVE Urine RBC (Auto) NEGATIVE NEGATIVE Urine RBC NONE /HPF Urine WBC 2-5 /HPF Urine Squamous Epithelial Cells 5-10 /HPF Urine Crystals PRESENT H /LPF Urine Amorphous Sediment FEW TRELL URATES H /LPF Urine Bacteria FEW H /HPF Urine Casts NONE /LPF Urine Mucus SMALL H /LPF Urine Culture Indicated YES Urine Opiates Screen NEGATIVE NEGATIVE Urine Oxycodone Screen NEGATIVE NEGATIVE Urine Methadone Screen NEGATIVE NEGATIVE Urine Propoxyphene Screen NEGATIVE NEGATIVE Urine Barbiturates Screen NEGATIVE NEGATIVE Ur Tricyclic Antidepressants Screen NEGATIVE NEGATIVE Urine Phencyclidine Screen NEGATIVE NEGATIVE Urine Amphetamines Screen NEGATIVE NEGATIVE Urine Methamphetamines Screen NEGATIVE NEGATIVE Urine Benzodiazepines Screen NEGATIVE NEGATIVE Urine Cocaine Screen NEGATIVE NEGATIVE Urine Cannabinoids Screen NEGATIVE NEGATIVE My Orders Orders - МАРИЯ WALDEN Ed Iv/Invasive Line Start (09/23/21 15:25) Ns Iv 500 Ml (Sodium Chloride 0.9%) (09/23/21 15:30) Orthostatic Vital Signs (Adult (09/23/21 15:25) Continuous Ekg Monitoring (09/23/21 15:25) Ekg Tracing (09/23/21 15:25) Cbc With Automated Diff (09/23/21 15:25) Accucheck Stat ONCE (09/23/21 15:25) Ua Culture If Indicated (09/23/21 15:25) Comprehensive Metabolic Panel (09/23/21 15:25) Hs C Reactive Protein (09/23/21 15:25) Troponin I (09/23/21 15:25) Alcohol (09/23/21 15:25) Drug Screen Stat (Urine) (09/23/21 15:25) Chest 1 View, Ap/Pa Only (09/23/21 15:34) BNP (09/23/21 15:34) Urine Culture (09/23/21 15:37) Medications Given in ED Current Medications Medications Dose Ordered Sig/Maikol Route Start Time Stop Time Status Last Admin Dose Admin Sodium Chloride 500 ml @ 0 mls/hr Q0M ONCE IV 09/23/21 15:30 09/23/21 15:31 DC 09/23/21 15:42 1,000 MLS/HR Vital Signs/I&O 09/23/21 09/23/21 15:15 15:29 Temp 36.6 Pulse 87 79 87 85 Resp 20 B/P (MAP) 144/69 (94) 138/52 (80) 133/67 (89) 122/59 (80) Pulse Ox 95 O2 Delivery Room Air Progress Progress Note #1: Time: 15:29 Progress Note Syncope, concern for dysrhythmia, orthostasis, dehydration etc. We will get a set of orthostatic vital signs, EKG was unrevealing. We will keep her on the monitor. We will check some labs. We will have her follow-up with cardiology outpatient if everything looks okay today Progress Note #2: Time: 16:44 Progress Note Reviewed the EKG with Dr. Ambrocio who states the QTC is actually 448 which is normal. Therefore the patient's [place] syncope score is 0 points, 1.9% risk in the 30 days for mace. He is happy to follow her up in the clinic. Patient is happy with this plan. Orthostatics are not positive. Initial ECG Impression Date: Sep 23, 2021 Initial ECG Impression Time: 15:20 Initial ECG Rate: 82 Initial ECG Rhythm: Normal Sinus Initial ECG Intervals: QT (487) Initial ECG Impression: Normal, Nonspecific Changes Initial ECG Comparisson: Unchanged Comment Normal sinus rhythm with some respiratory artifact. Borderline prolonged QTc interval. Diagnostic Imaging Diagonstic Imaging: Xray Plain Films/CT/US/NM/MRI: chest Comments [facility] [place], [place] NAME: RACHAEL GROVER [facility] REC#: [id number] PT STATUS: REG ER : 1945 PHYSICIAN: МАРИЯ WALDEN MD ADMIT DATE: 09/23/21/ER Draft Date of Exam:09/23/21 CHEST 1 VIEW, AP/PA ONLY EXAMINATION: Chest radiograph, portable AP view. DATE: 09/23/2021 3:55 PM INDICATION: 76-year-old female, syncope. COMPARISON: April 07, 2015. FINDINGS: There is a stable calcified nodule overlying the right midlung. Heart size and mediastinal contours appear unchanged. There is no identified pneumothorax. There is no large pleural effusion. There is no identified focal airspace consolidation. IMPRESSION: 1. No identified acute cardiopulmonary abnormality. Dictated on workstation # [id number] Dict: 09/23/21 1556 Trans: 09/23/21 1603 CV [id number] Interpreted by: JESUS SHERMAN MD Electronically signed by: Reviewed: Reviewed by Me Departure Impression Primary Impression: Syncope Qualified Codes: R55 - Syncope and collapse Disposition: 01 HOME, SELF-CARE Condition: Stable Departure-Patient Inst. Decision time for Depature: 16:45 Referrals: [facility]/RAYMUNDO CRABTREE JR, MD UNKNOWN (PCP) Primary Care Physician Patient Instructions: Syncope (Fainting) (DC) Add. Discharge Instructions: Make sure you drink plenty of fluids and Sunday morning call Dr. Ambrocoi for a follow-up appointment for further work-up of your passing out episodes none of syncope. Return to the ER if you are having chest pain, shortness of air or continual passing out episodes. Copy Copies To 1: [facility]/TEREZA; RAYMUNDO AMBROCIO JR, MD WELLER, TITUS J Sep 23, 2021 15:33
[2021-09-23 15:34] LABS: BASOPHILS # (AUTO) 0.1 10^3/uL (0.0-0.1); BASOPHILS % (AUTO) 1 % (0-10); EOSINOPHILS # (AUTO) 0.1 10^3/uL (0.0-0.3); EOSINOPHILS % (AUTO) 2 % (0-10); HEMATOCRIT 43 % (35-52); HEMOGLOBIN 14.6 g/dL (11.5-16.0); LYMPHOCYTES # (AUTO) 2.5 10^3/uL (1.0-4.0); LYMPHOCYTES % (AUTO) 31 % (12-44); MEAN CORPUSCULAR HEMOGLOBIN 31 pg (25-34); MEAN CORPUSCULAR HGB CONC 34 g/dL (32-36); MEAN CORPUSCULAR VOLUME 92 fL (80-99); MEAN PLATELET VOLUME 9.8 fL (9.0-12.2); MONOCYTES # (AUTO) 0.9 10^3/uL (0.0-1.0); MONOCYTES % (AUTO) 11 % (0-12); NEUTROPHILS # (AUTO) 4.4 10^3/uL (1.8-7.8); NEUTROPHILS % (AUTO) 55 % (42-75); PLATELET COUNT 261 10^3/uL (130-400)
[2021-09-23 15:47] LABS: BILIRUBIN,URINE NEGATIVE (NEGATIVE); CLARITY,URINE SL CLOUDY; COLOR,URINE YELLOW; GLUCOSE, URINE (UA) NEGATIVE (NEGATIVE); KETONES,URINE TRACE (NEGATIVE); LEUKOCYTE ESTERASE ,URINE 1+ (NEGATIVE); NITRITE,URINE NEGATIVE (NEGATIVE); PROTEIN,URINE TRACE (NEGATIVE)
[2021-09-23 15:49] LABS: ALBUMIN 4.2 GM/DL (3.2-4.5); CHLORIDE 98 MMOL/L (98-107); POTASSIUM 4.4 MMOL/L (3.6-5.0); SODIUM 137 MMOL/L (135-145)
[2021-09-23 15:50] LABS: CALCIUM 9.8 MG/DL (8.5-10.1)
[2021-09-23 15:51] LABS: GLUCOSE 119 MG/DL (70-105); TOTAL PROTEIN 6.9 GM/DL (6.4-8.2)
[2021-09-23 15:52] LABS: CARBON DIOXIDE 24 MMOL/L (21-32)
[2021-09-23 15:53] LABS: BILIRUBIN,TOTAL 0.5 MG/DL (0.1-1.0)
[2021-09-23 15:55] LABS: ALKALINE PHOSPHATASE 64 U/L (40-136); GFR ESTIMATED 44
[2021-09-23 15:56] LABS: BUN/CREATININE RATIO 18
[2021-09-23 15:58] LABS: ALANINE AMINOTRANSFERASE 10 U/L (0-55)
[2021-09-23 16:00] LABS: AMORPHOUS SEDIMENT,UR FEW AMOR URATES /LPF; BACTERIA,URINE FEW /HPF
--- NOTE | 2021-09-23 16:03 | Diagnostic Imaging Report ---
EXAMINATION: Chest radiograph, portable AP view. DATE: 09/23/2021 3:55 PM INDICATION: 76-year-old female, syncope. COMPARISON: April 07, 2015. FINDINGS: There is a stable calcified nodule overlying the right midlung. Heart size and mediastinal contours appear unchanged. There is no identified pneumothorax. There is no large pleural effusion. There is no identified focal airspace consolidation. IMPRESSION: 1. No identified acute cardiopulmonary abnormality. Dictated by: Dictated on workstation # [id number]
[2021-09-23 16:08] LABS: AMPHETAMINE SCREEN, URINE NEGATIVE (NEGATIVE); BARBITURATE SCREEN URINE NEGATIVE (NEGATIVE); BENZODIAZEPINES SCREEN URINE NEGATIVE (NEGATIVE); CANNABINOID SCREEN, URINE NEGATIVE (NEGATIVE); COCAINE SCREEN URINE NEGATIVE (NEGATIVE); METHADONE STAT NEGATIVE (NEGATIVE); METHAMPHETAMINE SCREEN URINE S NEGATIVE (NEGATIVE); OPIATE SCREEN URINE NEGATIVE (NEGATIVE); OXYCODONE STAT NEGATIVE (NEGATIVE); PROPOXYPHENE STAT NEGATIVE (NEGATIVE); TRICYCLIC ANTIDEPRESSANTS SCRE NEGATIVE (NEGATIVE)
[2021-09-23 16:55] VITALS: BP 122/59
== END 2021-09-23 17:06 | disposition home or self-care (01) ==
LOC: EDUNIT# 15:14 → ER 15:15
DX: R55 Syncope and collapse (principal); J44.9 Chronic obstructive pulmonary disease, unspecified; I10 Essential (primary) hypertension; E03.9 Hypothyroidism, unspecified; Z79.890 Hormone replacement therapy
CPT/HCPCS: 71045; 80053; 80306; 81000; 82947; 83880; 84484; 85025; 86141; 87088; 99284; G0480; 36415; 80320; 93005

== ENCOUNTER → 2021-10-17 | Outpatient (CLI) | payer MEDICARE | END | disposition home or self-care (01) | LOC: PREOP 07:01 | PROVIDERS: ATTEND Specialist | DX: Z01.818 Encounter for other preprocedural examination (principal) ==

== ENCOUNTER → 2021-10-17 | Outpatient (CLI) | payer MEDICARE | LOC: CARD 11:30 | PROVIDERS: ATTEND Internal Medicine Cardiovascular Disease | DX: I51.7 Cardiomegaly (principal); R42 Dizziness and giddiness | CPT/HCPCS: 93306 ==

== ENCOUNTER 2021-11-16 10:12 | Inpatient (IN) | payer MEDICARE ==
[~2021-11-16] VITALS: Ht 157.4 cm; Wt 69.9 kg
--- NOTE | 2021-11-16 10:50 | ED Upper Extremity ---
General Chief Complaint: Upper Extremity Stated Complaint: R ARM WEAKNESS Nursing Triage Note: ARRIVED VIA AMB TO ROOM 07 WITH COMPLAINTS OF RIGHT SIDED ARM/HAND NUMBNESS. STATES HER ARM STARTED TINGLING AFTER HER COVID BOOSTER ON 10/25 AND HAS GOTTEN WORSE SINCE. Source: patient Exam Limitations: no limitations History of Present Illness Date Seen by Provider: Nov 16, 2021 Time Seen by Provider: 10:30 Initial Comments This nvat-vkcy-vbwfjudn female presents to ER with right arm weakness. This began about 3 days after getting her COVID booster shot in the right arm. That was on October 25 so she noticed the symptoms about Jasmin time. It is gotten progressively worse to the point that she is unable to hold anything with her right hand. For example if she wants to open a bottle of water she has to put it between her legs to hold it and use her dominant left hand to unscrew the lid as she cannot hold it with the right hand. She denies any leg weakness, denies any troubles walking, denies any loss of bowel or bladder control. Onset: other Severity: moderate Pain/Injury Location: right arm, right hand Method of Injury: unknown Modifying Factors: Worse With Movement Allergies and Home Medications Allergies Coded Allergies: hydrocodone (Unverified Allergy, Mild, SEVERE VOMITING, 08/05/08) propoxyphene (Unverified Allergy, Mild, SEVERE VOMITING, 08/05/08) Patient Home Medication List Home Medication List Reviewed: Yes Albuterol Sulfate (Proair Hfa) 1 Puff Puff, 2 PUFF IH QID PRN for SHORTNESS OF BREATH, (Reported) Entered as Reported by: LUCIO LAMAR on 11/14/19922 Amlodipine Besylate (Amlodipine Besylate) 10 Mg Tablet, 10 MG PO DAILY, (Reported) Entered as Reported by: LUCIO LAMAR on 11/14/19922 Calcium Carbonate/Vitamin D3 (Calcium 500 + D Tablet) 1 Each Tablet, 1 TAB PO DAILY, (Reported) Entered as Reported by: LUCIO LAMAR on 11/14/19919 Estradiol (Estrace Tablet) 0.5 Mg Tablet, 0.5 MG PO DAILY, (Reported) Entered as Reported by: LUCIO LAMAR on 11/14/19919 Ipratropium/Albuterol Sulfate (Iprat-Albut 0.5-3(2.5) mg/3 ml) 3 Ml Ampul.neb, 3 ML NEB Q2H PRN for SHORTNESS OF BREATH, (Reported) Entered as Reported by: LUCIO LAMAR on 11/14/19922 Levothyroxine Sodium (Levothyroxine Sodium) 75 Mcg Tablet, 75 MCG PO DAILY, (Reported) Entered as Reported by: LUCIO LAMAR on 11/14/19918 Losartan Potassium (Losartan Potassium) 100 Mg Tablet, 100 MG PO DAILY, (Reported) Entered as Reported by: LUCIO LAMAR on 11/14/19919 Meloxicam (Meloxicam) 15 Mg Tablet, 15 MG PO DAILY, (Reported) Entered as Reported by: LUCIO LAMAR on 11/14/19919 Metoprolol Succinate (Metoprolol Succinate) 25 Mg Tab.er.24h, 25 MG PO DAILY, (Reported) Entered as Reported by: LUCIO LAMAR on 11/14/19918 Omeprazole (Omeprazole) 20 Mg Capsule.dr, 20 MG PO DAILY, (Reported) Entered as Reported by: LUCIO LAMAR on 11/14/19919 Prednisone (Prednisone) 20 Mg Tab, 40 MG PO DAILY@0700 Prescribed by: RED SUTTON on 11/14/19 1022 Prednisone (Prednisone) 20 Mg Tab, 40 MG PO DAILY Prescribed by: ROBBIN REGALADO on 11/16/21 1121 Review of Systems Constitutional: see HPI EENTM: see HPI Respiratory: no symptoms reported Cardiovascular: no symptoms reported Genitourinary: no symptoms reported Musculoskeletal: see HPI Skin: no symptoms reported Psychiatric/Neurological: See HPI Past Nhhqctc-Cmgtuv-Dhptcu Hx Patient Social History Smoking Status: Former Smoker Substance use?: No Alcohol Use?: No Immunizations Up To Date Tetanus Booster (TDap): Unknown COVID19 Vaccine Hospital Scientist: MODERNA Seasonal Allergies Seasonal Allergies: Yes Past Medical History Surgeries: Yes (LEFT INGUINAL HERNIA; HYST/BSO; ) Abdominal, Hysterectomy, Oophorectomy, Tonsillectomy Respiratory: Yes (O2 AT HS PRN) Pneumonia, COPD Cardiac: Yes Hypertension, Syncope Neurological: No Reproductive Disorders: Yes (CERVICAL CANCER--S/P HYST/BSO) 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 Genitourinary: No Gastrointestinal: Yes (LEFT INGUINAL HERNIA REPAIR) Abdominal Hernia Musculoskeletal: Yes Arthritis Endocrine: Yes (WAS HYPERTHYROID--S/P YANCEY TX, NOW HYPOTHYROID) Hyperthyroidism, Hypothyroidsim HEENT: Yes (S/P TONSILLECTOMY) Tonsilitis Cancer: Yes Cervical Did You Recieve Any Treatments: Yes What Type of Treatment Did You: Surgical Intervention Psychosocial: No Integumentary: No Blood Disorders: No Family Medical History Coronary thrombosis 19 FATHER, Onset:Unknown FH: blood disorder daughter, Onset: - FH: hypothyroidism son, Onset:Unknown FH: syncope granddaughter, Onset: - FHx: epilepsy 19 MOTHER, Onset:Unknown Kidney stones granddaughter, Onset: Myocardial infarction 19 FATHER, Onset:Unknown Thyroid disease 19 MOTHER, Onset:Unknown Physical Exam Vital Signs Vital Signs - First Documented 11/16/21 10:20 Temp 36.3 Pulse 106 Resp 16 B/P (MAP) 129/81 (97) Pulse Ox 98 O2 Delivery Room Air Capillary Refill : Less Than 3 Seconds Height, Weight, BMI Height: 5'2.00" Weight: 164lbs. 0.0oz. 74.589359mu; 29.00 BMI Method:Stated General Appearance: WD/WN, no apparent distress HEENT: other (exopthalmos) Neck: non-tender, full range of motion Cardiovascular: regular rate, rhythm, no murmur Respiratory: normal breath sounds, no respiratory distress, no accessory muscle use Gastrointestinal: normal bowel sounds, non tender, soft Shoulder: normal inspection, non-tender Elbow/Forearm: normal inspection, non-tender Wrist: Yes normal inspection, Yes non-tender Hand: normal inspection, non-tender Neurologic/Psychiatric: alert, normal mood/affect, oriented x 3 Skin: normal color, warm/dry Manager Custom strength 3 out of 5 right 5 out of 5 left. Right arm flexion and extension at the elbow is 3 out of 5 and 5 out of 5 on the left. Progress/Results/Core Measures Results/Orders Lab Results Laboratory Tests Test 11/16/21 11:44 Range/Units White Blood Count 7.5 4.3-11.0 10^3/uL Red Blood Count 4.65 3.80-5.11 10^6/uL Hemoglobin 14.5 11.5-16.0 g/dL Hematocrit 43 35-52 % Mean Corpuscular Volume 92 80-99 fL Mean Corpuscular Hemoglobin 31 25-34 pg Mean Corpuscular Hemoglobin Concent 34 32-36 g/dL Red Cell Distribution Width 12.7 10.0-14.5 % Platelet Count 237 130-400 10^3/uL Mean Platelet Volume 10.2 9.0-12.2 fL Immature Granulocyte % (Auto) 0 % Neutrophils (%) (Auto) 58 42-75 % Lymphocytes (%) (Auto) 29 12-44 % Monocytes (%) (Auto) 10 0-12 % Eosinophils (%) (Auto) 1 0-10 % Basophils (%) (Auto) 1 0-10 % Neutrophils # (Auto) 4.4 1.8-7.8 10^3/uL Lymphocytes # (Auto) 2.2 1.0-4.0 10^3/uL Monocytes # (Auto) 0.8 0.0-1.0 10^3/uL Eosinophils # (Auto) 0.1 0.0-0.3 10^3/uL Basophils # (Auto) 0.0 0.0-0.1 10^3/uL Immature Granulocyte # (Auto) 0.0 0.0-0.1 10^3/uL Prothrombin Time 12.9 12.2-14.7 SEC INR Comment 0.9 0.8-1.4 Activated Partial Thromboplast Time 33 24-35 SEC D-Dimer 0.72 H 0.00-0.49 UG/ML Sodium Level 138 135-145 MMOL/L Potassium Level 3.9 3.6-5.0 MMOL/L Chloride Level 103 98-107 MMOL/L Carbon Dioxide Level 24 21-32 MMOL/L Anion Gap 11 5-14 MMOL/L Blood Urea Nitrogen 18 7-18 MG/DL Creatinine 1.01 0.60-1.30 MG/DL Estimat Glomerular Filtration Rate 54 BUN/Creatinine Ratio 18 Glucose Level 99 70-105 MG/DL Calcium Level 9.2 8.5-10.1 MG/DL Corrected Calcium 9.3 8.5-10.1 MG/DL Total Bilirubin 0.4 0.1-1.0 MG/DL Aspartate Amino Transf (AST/SGOT) 16 5-34 U/L Alanine Aminotransferase (ALT/SGPT) 11 0-55 U/L Alkaline Phosphatase 62 40-136 U/L Troponin I < 0.028 <0.028 NG/ML Total Protein 7.1 6.4-8.2 GM/DL Albumin 3.9 3.2-4.5 GM/DL My Orders Orders - ROBBIN REGALADO APRN Ct Head Wo (11/16/21 11:05) Cbc With Automated Diff (11/16/21 11:46) Protime With Inr (11/16/21 11:46) Partial Thromboplastin Time (11/16/21 11:46) Comprehensive Metabolic Panel (11/16/21 11:46) Fibrin Degradation Products (11/16/21 11:46) Troponin I Peng (11/16/21 11:46) Ua Culture If Indicated (11/16/21 11:46) Chest 1 View, Ap/Pa Only (11/16/21 11:46) Ekg Tracing (11/16/21 11:46) Accucheck Stat ONCE (11/16/21 11:46) Ed Iv/Invasive Line Start (11/16/21 11:46) Ed Iv/Invasive Line Start (11/16/21 11:46) Vital Signs Stroke Patient Q15M (11/16/21 11:46) O2 (11/16/21 11:46) Intake & Output 06,14,22 (11/16/21 11:46) Monitor-Rhythm Ecg Trace Only (11/16/21 11:46) Dysphagia Screening Tool (11/16/21 11:46) Post Thrombolytic Adminstratio (11/16/21 11:46) Lipid Panel (11/17/21 06:00) Lorazepam Injection (Ativan Injection) (11/16/21 12:00) Lorazepam Injection (Ativan Injection) (11/16/21 12:15) Mri Brain W/O Contrast (11/16/21 12:33) Mri Cervical Spine W/O Contras (11/16/21 12:33) Albuterol/Ipra Inhalation Soln (Duoneb I (11/16/21 13:45) Svn Small Volume Nebulizer (11/16/21 13:35) Ed Admission (Communication) (11/16/21 14:03) Us Carotid Alvin Complete 62078 (11/17/21 14:08) Echo W Doppler/Color Flow (11/17/21 14:08) Aspirin Chewable Tablet (Baby Aspirin Ch (11/16/21 14:15) Medications Given in ED Current Medications Medications Dose Ordered Sig/Maikol Route Start Time Stop Time Status Last Admin Dose Admin Lorazepam 0.5 mg ONCE PRN IVP 11/16/21 12:00 11/16/21 12:17 0.5 MG Vital Signs/I&O 11/16/21 10:20 Temp 36.3 Pulse 106 Resp 16 B/P (MAP) 129/81 (97) Pulse Ox 98 O2 Delivery Room Air Blood Pressure Mean: 97 Departure Communication (Admissions) Family Conversation 1411-spoke with Dr. Moulton, she will put in orders. I spoke with Dr. Obregon, he would like a an echocardiogram and carotid Doppler ordered tomorrow. Aspirin daily. Patient does take estradiol she states. She quit taking it towards the end of October but has been taking half tablet since then. NAME: RACHAEL GROVER [facility] REC#: [id number] PT STATUS: REG ER : 1945 PHYSICIAN: ROBBIN REGALADO APRN ADMIT DATE: 11/16/21/ER Draft Date of Exam:11/16/21 MRI CERVICAL SPINE W/O CONTRAS PROCEDURE: MR imaging cervical spine without contrast. TECHNIQUE: Multiplanar, multisequence MR imaging of the cervical spine was performed without contrast. INDICATION: Right arm weakness and numbness. Neck pain. COMPARISON: none. FINDINGS: No acute fracture or dislocation is seen in the cervical spine. There is straightening of the cervical spine. The vertebral body heights are well maintained. Modic type II endplate degenerative changes are present at the C4-C5 level. No focal osseous lesions. The craniocervical junction is maintained. The cervical spinal cord demonstrates normal intrinsic signal. No epidural collections are seen. The included brainstem and posterior fossa have normal appearance. Multilevel degenerative changes are seen in the cervical spine with posterior disc bulges and uncovertebral arthropathy. C2-C3: No significant spinal canal or foraminal stenosis. C3-C4: Uncovertebral arthropathy results in mild right and moderate left foraminal stenosis and mild spinal canal stenosis. C4-C5: Posterior disc bulge with superimposed left subarticular protrusion and uncovertebral arthropathy results in moderate to severe spinal canal stenosis, severe left lateral recess stenosis and moderate bilateral foraminal stenosis. C5-C6: Posterior disc bulge and uncovertebral arthropathy results in no significant spinal canal narrowing and no significant foraminal narrowing. C6-C7: Posterior disc bulge and uncovertebral arthropathy results in mild spinal canal narrowing and mild right and moderate to severe left foraminal stenosis. C7-T1: No significant spinal canal or foraminal stenosis. The soft tissues of neck are unremarkable. IMPRESSION: 1. No acute fracture or dislocation of the cervical spine. 2. Multilevel degenerative changes in the cervical spine, greatest at C4-C5 and C6-C7. 3. Modic type II endplate degenerative changes at the C4-C5 level. Dictated on workstation # [id number] Dict: 11/16/21 1339 Trans: 11/16/21 1345 [facility] [id number] Interpreted by: GENEVIEVE LESTER DO Electronically signed by: NAME: RACHAEL GROVER [facility] REC#: [id number] PT STATUS: REG ER : 1945 PHYSICIAN: ROBBIN REGALADO APRN ADMIT DATE: 11/16/21/ER Draft Date of Exam:11/16/21 MRI BRAIN W/O CONTRAST PROCEDURE: MR imaging of the brain without contrast. TECHNIQUE: Multiplanar, multisequence MR imaging of the brain was performed without contrast. INDICATION: Right arm weakness. COMPARISON: CT head without contrast 11/16/2021. FINDINGS: Multiple regions restricted water diffusion in the left posterior frontal and anterior parietal lobes consistent with acute to subacute infarct. No evidence of hemorrhagic conversion. No mass effect. There is some development of cortical laminar necrosis in the left frontal lobe. Mild to moderate additional nonspecific T2 hyperintensities in the supratentorial white matter compatible with chronic small vessel ischemic change. Mild to moderate generalized parenchymal volume loss is age appropriate. Normal morphology in the major midline structures, sella, posterior fossa and cerebellar pontine angle. No hydrocephalus or extra-axial fluid collections. Normal intracranial flow voids. The orbits are negative. Paranasal sinuses and mastoids are clear. Normal bone marrow signal. IMPRESSION: 1. Probable subacute infarct in the left MCA distribution. There has been development of some cortical laminar necrosis in the posterior left frontal lobe. No evidence of hemorrhagic conversion or mass effect. 2. Age-appropriate parenchymal volume loss and chronic small vessel ischemic change. Dictated on workstation # [id number] Dict: 11/16/21 1338 Trans: 11/16/21 1354 [facility] [id number] Interpreted by: TEENA MCCALL MD Electronically signed by: May Primary Impression: Subacute cva Disposition: HOME, SELF-CARE Condition: Stable Departure-Patient Inst. Decision time for Depature: 10:50 Referrals: NO,LOCAL PHYSICIAN (PCP) Primary Care Physician SUSAN VALLE (Family) Primary Care Physician BUCKY CHOWDHURY MD Patient Instructions: Paresthesia (DC) Add. Discharge Instructions: 1. Call Dr. Chowdhury's clinic today to make an appointment to be seen. Return to ER for any concerns. Steroids as directed. All discharge instructions reviewed with patient and/or family. Voiced understanding. Scripts Prednisone (Prednisone) 20 Mg Tab 40 MG PO DAILY, #8 TAB Prov: ROBBIN REGALADO CABINET BUILDER 11/16/21 Copy Copies To 1: BUCKY CHOWDHURY MD NIH Stroke Scale NIH Stroke Scale NIH : Select: Initial Level of Consciousness: 0=Alert Level of Consciousness-Questio: 0=Answers both month/age LOC Commands: 0=Performs both tasks Gaze: 0=Normal Visual Kaplan: 1=Partial hemianopia Facial Movement (Facial Paresi: 0=Normal symmetrical mnt Motor Function-Arms Right: 2=Some effort/gravity Motor Function-Arms Left: 0=No drift Motor Function-Legs Right: 0=No drift Motor Function-Legs Left: 0=No drift Limb Ataxia: 1=Present in one limb Sensory: 0=Normal:no loss Best Language: 0=No aphasia Dysarthria: 0=Normal Extinction & Inattention: 0=No abnormality NIH Stroke Scale Score: 3 ROBBIN REGALADO CABINET BUILDER Nov 16, 2021 10:50
[2021-11-16] MEDS ORDERED: PRD20T PO (11:21)
--- NOTE | 2021-11-16 11:37 | Diagnostic Imaging Report ---
PROCEDURE: CT head without contrast. TECHNIQUE: Multiple contiguous axial images were obtained through the brain without the use of intravenous contrast. Auto Exposure Controls were utilized during the CT exam to meet ALARA standards for radiation dose reduction. INDICATION: Lack of feeling in the right hand. Correlation is made with prior head CT from 05/21/2021. Previously noted proptosis is again seen. Ventricular size is stable. There is a subtle area of low density in the left frontal lobe not definitely seen on prior CT. There is no midline shift. No acute intra-axial or extra-axial hemorrhage is detected. Cisterns are patent. Visualized paranasal sinuses are clear. IMPRESSION: There is a subtle area of low density in the left frontal lobe, new since CT study from May 2021. This could conceivably represent an area of subacute ischemia. MRI of the brain would be useful for further evaluation. No acute intracranial hemorrhage is detected. Dictated by: Dictated on workstation # [id number]
[2021-11-16 11:53] LABS: BASOPHILS % (AUTO) 1 % (0-10); EOSINOPHILS # (AUTO) 0.1 10^3/uL (0.0-0.3); EOSINOPHILS % (AUTO) 1 % (0-10); HEMATOCRIT 43 % (35-52); HEMOGLOBIN 14.5 g/dL (11.5-16.0); LYMPHOCYTES # (AUTO) 2.2 10^3/uL (1.0-4.0); LYMPHOCYTES % (AUTO) 29 % (12-44); MEAN CORPUSCULAR HEMOGLOBIN 31 pg (25-34); MEAN CORPUSCULAR HGB CONC 34 g/dL (32-36); MEAN CORPUSCULAR VOLUME 92 fL (80-99); MEAN PLATELET VOLUME 10.2 fL (9.0-12.2); MONOCYTES # (AUTO) 0.8 10^3/uL (0.0-1.0); MONOCYTES % (AUTO) 10 % (0-12); NEUTROPHILS # (AUTO) 4.4 10^3/uL (1.8-7.8); NEUTROPHILS % (AUTO) 58 % (42-75); PLATELET COUNT 237 10^3/uL (130-400); WHITE BLOOD COUNT 7.5 10^3/uL (4.3-11.0)
[2021-11-16] MEDS: LORazepam INJ 2 MG/ML (ATIVAN) VIAL IVP PRN ×2 (11:57→12:17)
[2021-11-16 12:04] LABS: ALBUMIN 3.9 GM/DL (3.2-4.5); CHLORIDE 103 MMOL/L (98-107); POTASSIUM 3.9 MMOL/L (3.6-5.0); SODIUM 138 MMOL/L (135-145)
[2021-11-16 12:05] LABS: CALCIUM 9.2 MG/DL (8.5-10.1)
[2021-11-16 12:06] LABS: GLUCOSE 99 MG/DL (70-105); TOTAL PROTEIN 7.1 GM/DL (6.4-8.2)
[2021-11-16 12:07] LABS: CARBON DIOXIDE 24 MMOL/L (21-32)
[2021-11-16 12:08] LABS: BILIRUBIN,TOTAL 0.4 MG/DL (0.1-1.0); FIBRIN DEGRADATION PRODUCTS 0.72 UG/ML (0.00-0.49); INR 0.9 (0.8-1.4); PROTHROMBIN TIME PATIENT 12.9 SEC (12.2-14.7)
[2021-11-16 12:10] LABS: ALKALINE PHOSPHATASE 62 U/L (40-136); CREATININE SERUM 1.01 MG/DL (0.60-1.30); GFR ESTIMATED 54
[2021-11-16 12:11] LABS: BUN/CREATININE RATIO 18
[2021-11-16 12:13] LABS: ALANINE AMINOTRANSFERASE 11 U/L (0-55)
[2021-11-16] MEDS ORDERED: LORazepam INJ 2 MG/ML (ATIVAN) VIAL IVP PRN (12:15)
--- NOTE | 2021-11-16 12:51 | Diagnostic Imaging Report ---
INDICATION: Right-sided chest pain COMPARISON: 09/23/2021 FINDINGS: Single view the chest demonstrates stable granuloma in the right base. The heart is prominent without pulmonary edema. There is no infiltrate, effusion or pneumothorax. Osseous structures are unremarkable. IMPRESSION: Negative chest. Dictated by: Dictated on workstation # [id number]
[2021-11-16] MEDS ORDERED: RT-ALBUTEROL/IPRATROPIUM 3 ML (DUONEB) VIAL INH ONE (13:45)
--- NOTE | 2021-11-16 13:46 | Diagnostic Imaging Report ---
PROCEDURE: MR imaging cervical spine without contrast. TECHNIQUE: Multiplanar, multisequence MR imaging of the cervical spine was performed without contrast. INDICATION: Right arm weakness and numbness. Neck pain. COMPARISON: none. FINDINGS: No acute fracture or dislocation is seen in the cervical spine. There is straightening of the cervical spine. The vertebral body heights are well maintained. Modic type II endplate degenerative changes are present at the C4-C5 level. No focal osseous lesions. The craniocervical junction is maintained. The cervical spinal cord demonstrates normal intrinsic signal. No epidural collections are seen. The included brainstem and posterior fossa have normal appearance. Multilevel degenerative changes are seen in the cervical spine with posterior disc bulges and uncovertebral arthropathy. C2-C3: No significant spinal canal or foraminal stenosis. C3-C4: Uncovertebral arthropathy results in mild right and moderate left foraminal stenosis and mild spinal canal stenosis. C4-C5: Posterior disc bulge with superimposed left subarticular protrusion and uncovertebral arthropathy results in moderate to severe spinal canal stenosis, severe left lateral recess stenosis and moderate bilateral foraminal stenosis. C5-C6: Posterior disc bulge and uncovertebral arthropathy results in no significant spinal canal narrowing and no significant foraminal narrowing. C6-C7: Posterior disc bulge and uncovertebral arthropathy results in mild spinal canal narrowing and mild right and moderate to severe left foraminal stenosis. C7-T1: No significant spinal canal or foraminal stenosis. The soft tissues of neck are unremarkable. IMPRESSION: 1. No acute fracture or dislocation of the cervical spine. 2. Multilevel degenerative changes in the cervical spine, greatest at C4-C5 and C6-C7. 3. Modic type II endplate degenerative changes at the C4-C5 level. Dictated by: Dictated on workstation # [id number]
--- NOTE | 2021-11-16 13:55 | Diagnostic Imaging Report ---
PROCEDURE: MR imaging of the brain without contrast. TECHNIQUE: Multiplanar, multisequence MR imaging of the brain was performed without contrast. INDICATION: Right arm weakness. COMPARISON: CT head without contrast 11/16/2021. FINDINGS: Multiple regions restricted water diffusion in the left posterior frontal and anterior parietal lobes consistent with acute to subacute infarct. No evidence of hemorrhagic conversion. No mass effect. There is some development of cortical laminar necrosis in the left frontal lobe. Mild to moderate additional nonspecific T2 hyperintensities in the supratentorial white matter compatible with chronic small vessel ischemic change. Mild to moderate generalized parenchymal volume loss is age appropriate. Normal morphology in the major midline structures, sella, posterior fossa and cerebellar pontine angle. No hydrocephalus or extra-axial fluid collections. Normal intracranial flow voids. The orbits are negative. Paranasal sinuses and mastoids are clear. Normal bone marrow signal. IMPRESSION: 1. Probable subacute infarct in the left MCA distribution. There has been development of some cortical laminar necrosis in the posterior left frontal lobe. No evidence of hemorrhagic conversion or mass effect. 2. Age-appropriate parenchymal volume loss and chronic small vessel ischemic change. Dictated by: Dictated on workstation # [id number]
[2021-11-16] MEDS ORDERED: ASPIRIN 81 MG CHEW (CHILDREN'S ASA) PO ONE (14:15)
[2021-11-16] MEDS: ENOXAPARIN 40 MG/0.4 ML (LOVENOX) SYR SC SCH (18:23)
[2021-11-16 20:00] VITALS: BP 121/79
[2021-11-17] VITALS (7 sets, daily range): BP systolic 118–147; BP diastolic 59–77
[2021-11-17 06:39] LABS: BASOPHILS # (AUTO) 0.1 10^3/uL (0.0-0.1); BASOPHILS % (AUTO) 1 % (0-10); EOSINOPHILS # (AUTO) 0.2 10^3/uL (0.0-0.3); EOSINOPHILS % (AUTO) 3 % (0-10); HEMATOCRIT 40 % (35-52); HEMOGLOBIN 13.5 g/dL (11.5-16.0); LYMPHOCYTES % (AUTO) 44 % (12-44); MEAN CORPUSCULAR HEMOGLOBIN 31 pg (25-34); MEAN CORPUSCULAR HGB CONC 34 g/dL (32-36); MEAN CORPUSCULAR VOLUME 92 fL (80-99); MEAN PLATELET VOLUME 10.7 fL (9.0-12.2); MONOCYTES # (AUTO) 0.8 10^3/uL (0.0-1.0); MONOCYTES % (AUTO) 12 % (0-12); NEUTROPHILS # (AUTO) 2.8 10^3/uL (1.8-7.8); NEUTROPHILS % (AUTO) 41 % (42-75); PLATELET COUNT 244 10^3/uL (130-400)
[2021-11-17 06:49] LABS: POTASSIUM 3.8 MMOL/L (3.6-5.0)
[2021-11-17 06:50] LABS: ALBUMIN 3.7 GM/DL (3.2-4.5)
[2021-11-17 06:52] LABS: TOTAL PROTEIN 6.7 GM/DL (6.4-8.2)
[2021-11-17 06:54] LABS: BILIRUBIN,TOTAL 0.3 MG/DL (0.1-1.0)
[2021-11-17 06:56] LABS: CREATININE SERUM 0.98 MG/DL (0.60-1.30)
--- NOTE | 2021-11-17 08:25 | Consultation-Cardiology ---
HPI-Cardiology Cardiology Consultation: Date of Consultation 11/17/2021 Date of Admission 11/16/2021 Attending Physician Amina Moulton MD Admitting Physician No,Local Physician Consulting Physician RAYMUNDO GALDAMEZ JR, MD HPI: Time Seen by a Provider: 08:30 Chief Complaint: Reason for consultation: Acute/subacute stroke. I had the pleasure of seeing Maryellen on the medical/surgical unit at [facility] in [place], [place] today. I had previously seen her in my office due to lightheaded spells and then a syncopal spell. She denies any recurrent syncope. Last week she got her COVID booster in her right arm and the next day her right arm started to feel weak. She thought this was just a side effect from the COVID booster. However, her arm got progressively more and more weak. She was not able to hold anything with her right hand. Yesterday she came to the emergency room for further evaluation. She had a head CT that showed a possible ischemic defect in the left frontal lobe. She then underwent MRI of the brain that showed an acute/subacute stroke and she was admitted to the hospital for further treatment and evaluation. She was outside the window of thrombolytics. A cardiology consultation was then requested. She denies chest discomfort, dyspnea, paroxysmal nocturnal dyspnea, insomnia, palpitations, or lower extremity edema. She denies any other neurologic complaints other than the right arm and hand weakness. Certain portions of this document may have been dictated utilizing voice recognition technology. Inherent to this technology, typographical and grammatical errors may exist. As much as I am diligent to identify and correct these mistakes, some errors may remain in the document. Review of Systems-Cardiology Review of Systems Other comments Review of 10 organ systems is as per the history of present illness, otherwise negative. IGM-Pgnjkz-Svgfwb Hx Patient Social History Smoking Status: Former Smoker 2nd Hand Smoke Exposure: No Have you traveled recently?: No Alcohol Use?: No Pt feels they are or have been: No Immunizations Up To Date Tetanus Booster (TDap): Unknown Past Medical History PMH As described under Assessment. Family Medical History Family History: Coronary thrombosis 19 FATHER, Onset:Unknown FH: blood disorder daughter, Onset:20's - 25 FH: hypothyroidism son, Onset:Unknown FH: syncope granddaughter, Onset:15's - 20 FHx: epilepsy 19 MOTHER, Onset:Unknown Kidney stones granddaughter, Onset:20's - 25 Myocardial infarction 19 FATHER, Onset:Unknown Thyroid disease 19 MOTHER, Onset:Unknown Allergies and Home Medications Allergies Coded Allergies: hydrocodone (Verified Allergy, Mild, SEVERE VOMITING, 11/16/21) propoxyphene (Verified Allergy, Mild, SEVERE VOMITING, 11/16/21) Patient Home Medication List Home Medication List Reviewed: Yes Albuterol Sulfate (Proair Hfa) 1 Puff Puff, 2 PUFF IH QID PRN for SHORTNESS OF BREATH, (Reported) Entered as Reported by: LUCIO LAMAR on 11/14/19922 Last Action: Reviewed Amlodipine Besylate (Amlodipine Besylate) 10 Mg Tablet, 10 MG PO DAILY, (Reported) Entered as Reported by: LUCIO LAMAR on 11/14/19922 Last Action: Reviewed Calcium Carbonate/Vitamin D3 (Calcium 500 + D Tablet) 1 Each Tablet, 1 TAB PO DAILY, (Reported) Entered as Reported by: LUCIO LAMAR on 11/14/19919 Last Action: Reviewed Levothyroxine Sodium (Levothyroxine Sodium) 88 Mcg Tablet, 88 MCG PO DAILY, (Reported) Entered as Reported by: NURY WRIGHT on 11/17/21 1127 Last Action: Reviewed Losartan Potassium (Losartan Potassium) 100 Mg Tablet, 100 MG PO DAILY, (Reported) Entered as Reported by: LUCIO LAMAR on 11/14/19919 Last Action: Reviewed Meloxicam (Meloxicam) 15 Mg Tablet, 15 MG PO DAILY, (Reported) Entered as Reported by: LUCIO LAMAR on 11/14/19919 Last Action: Reviewed Omeprazole (Omeprazole) 20 Mg Capsule.dr, 20 MG PO DAILY, (Reported) Entered as Reported by: LUCIO LAMAR on 11/14/19919 Last Action: Reviewed Discontinued Medications Estradiol (Estrace Tablet) 0.5 Mg Tablet, 0.5 MG PO DAILY, (Reported) Discontinued Reason: No Longer Taking Entered as Reported by: LUCIO LAMAR on 11/14/19919 Last Action: Discontinued Ipratropium/Albuterol Sulfate (Iprat-Albut 0.5-3(2.5) mg/3 ml) 3 Ml Ampul.neb, 3 ML NEB Q2H PRN for SHORTNESS OF BREATH, (Reported) Discontinued Reason: No Longer Taking Entered as Reported by: LUCIO LAMAR on 11/14/19922 Last Action: Discontinued Levothyroxine Sodium (Levothyroxine Sodium) 75 Mcg Tablet, 75 MCG PO DAILY, (Reported) Discontinued Reason: No Longer Taking Entered as Reported by: LUCIO LAMAR on 11/14/19918 Last Action: Discontinued Metoprolol Succinate (Metoprolol Succinate) 25 Mg Tab.er.24h, 25 MG PO DAILY, (Reported) Discontinued Reason: No Longer Taking Entered as Reported by: LUCIO LAMAR on 11/14/19918 Last Action: Discontinued Prednisone (Prednisone) 20 Mg Tab, 40 MG PO DAILY@0700 Discontinued Reason: No Longer Taking Prescribed by: RED SUTTON on 11/14/19 1022 Last Action: Discontinued Prednisone (Prednisone) 20 Mg Tab, 40 MG PO DAILY Discontinued Reason: No Longer Taking Prescribed by: ROBBIN REGALADO on 11/16/21 1121 Last Action: Discontinued Exam Vital Signs Vital Signs Date Time Temp Pulse Resp B/P (MAP) Pulse Ox O2 Delivery O2 Flow Rate FiO2 11/17/21 12:15 77 11/17/21 11:27 36.8 20 147/71 (96) 91 Room Air 11/17/21 08:11 1.50 Physical Exam General: Alert. No acute distress. Well nourished and appears stated age. Eye: Extraocular movements are intact. Conjunctivae are clear. There are no xanthelasma. HENT: Normocephalic. Atraumatic. Carotid pulsations 2/2 without bruits. Neck: Jugular venous pressure does not appear elevated. No thyromegaly appreciated. Respiratory: Lungs are clear to auscultation. Respirations are non-labored. Breath sounds are equal. Symmetrical chest wall expansion. Cardiovascular: Normal rate. Regular rhythm. No murmur. No gallop. Point of maximal impulse is not appear displaced. Good pulses equal in all extremities. No edema. Gastrointestinal: Soft. Normal bowel sounds. Skin: Skin turgor is normal. There is no pallor. Musculoskeletal: No kyphosis or scoliosis appreciated. Neurologic: Alert and oriented to person, place, time. Cranial nerves 3-12 appear grossly intact. Right arm weakness. Psychiatric: Cooperative. Appropriate mood & affect. Labs Laboratory Tests Test 11/17/21 05:45 Range/Units White Blood Count 7.0 4.3-11.0 10^3/uL Red Blood Count 4.36 3.80-5.11 10^6/uL Hemoglobin 13.5 11.5-16.0 g/dL Hematocrit 40 35-52 % Mean Corpuscular Volume 92 80-99 fL Mean Corpuscular Hemoglobin 31 25-34 pg Mean Corpuscular Hemoglobin Concent 34 32-36 g/dL Red Cell Distribution Width 12.7 10.0-14.5 % Platelet Count 244 130-400 10^3/uL Mean Platelet Volume 10.7 9.0-12.2 fL Immature Granulocyte % (Auto) 0 % Neutrophils (%) (Auto) 41 L 42-75 % Lymphocytes (%) (Auto) 44 12-44 % Monocytes (%) (Auto) 12 0-12 % Eosinophils (%) (Auto) 3 0-10 % Basophils (%) (Auto) 1 0-10 % Neutrophils # (Auto) 2.8 1.8-7.8 10^3/uL Lymphocytes # (Auto) 3.0 1.0-4.0 10^3/uL Monocytes # (Auto) 0.8 0.0-1.0 10^3/uL Eosinophils # (Auto) 0.2 0.0-0.3 10^3/uL Basophils # (Auto) 0.1 0.0-0.1 10^3/uL Immature Granulocyte # (Auto) 0.0 0.0-0.1 10^3/uL Sodium Level 141 135-145 MMOL/L Potassium Level 3.8 3.6-5.0 MMOL/L Chloride Level 105 98-107 MMOL/L Carbon Dioxide Level 23 21-32 MMOL/L Anion Gap 13 5-14 MMOL/L Blood Urea Nitrogen 25 H 7-18 MG/DL Creatinine 0.98 0.60-1.30 MG/DL Estimat Glomerular Filtration Rate 55 BUN/Creatinine Ratio 26 Glucose Level 92 70-105 MG/DL Calcium Level 9.0 8.5-10.1 MG/DL Corrected Calcium 9.2 8.5-10.1 MG/DL Total Bilirubin 0.3 0.1-1.0 MG/DL Aspartate Amino Transf (AST/SGOT) 17 5-34 U/L Alanine Aminotransferase (ALT/SGPT) 10 0-55 U/L Alkaline Phosphatase 67 40-136 U/L Total Protein 6.7 6.4-8.2 GM/DL Albumin 3.7 3.2-4.5 GM/DL Triglycerides Level 98 <150 MG/DL Cholesterol Level 190 < 200 MG/DL LDL Cholesterol Direct 132 H 1-129 MG/DL VLDL Cholesterol 20 5-40 MG/DL HDL Cholesterol 48 40-60 MG/DL Radiology ECHOCARDIOGRAM (11/17/2021): 1. This is a technically difficult study due to poor image quality secondary to patient's body habitus. 2. Left ventricle: The cavity size is normal. There is moderate concentric hypertrophy. Systolic function is normal. The estimated ejection fraction is 55- 60%. There are no regional wall motion abnormalities identified on this technically difficult study. Doppler parameters are consistent with abnormal left ventricular relaxation (grade 1 diastolic dysfunction). 3. Mitral valve: The annulus is mildly calcified. 4. Aortic valve: There is mild aortic valve sclerosis. 5. Pulmonary arteries: The estimated pulmonary artery systolic pressure is 24 mmHg assuming a right atrial pressure of 5 mmHg. 6. Compared to the previous study from 10/17/2021, there are no significant changes. ECHOCARDIOGRAM (10/17/2021): 1. Normal left ventricular chamber size with mild concentric left ventricular hypertrophy. Normal left ventricular systolic function with an estimated ejection fraction of 55-60% with no regional wall motion abnormalities identified. 2. Doppler parameters are consistent with grade 1 diastolic dysfunction. 3. The estimated pulmonary artery systolic pressure is 32 mmHg assuming a right atrial pressure of 5 mmHg. LABS (09/23/2021): Sodium 137. Potassium 4.4. Creatinine 1.2. GFR 44. Glucose 119. Troponin undetectable. Liver function tests normal. Hemoglobin 14.6. Platelets 261,000. ELECTROCARDIOGRAM (09/23/2021): Baseline wander with sinus rhythm and possible anteroseptal infarct, age indeterminate. PORTABLE AP CHEST X-RAY (09/23/2021): 1. No identified acute cardiopulmonary abnormality. BILATERAL CAROTID ULTRASOUND (11/28/2007): 1. No visual, velocity, or ratio evidence of hemodynamically significant carotid artery stenosis. ECHOCARDIOGRAM (11/26/2007): 1. Moderate concentric left ventricular hypertrophy with normal systolic function. Estimated ejection fraction is 70%. 2. Diastolic dysfunction by Doppler. 3. Trace mitral regurgitation. Mild tricuspid regurgitation. 4. Pulmonary hypertension with estimated pulmonary artery pressure of 45-50 mmHg. ECG Impression ECG Comment Electrocardiogram obtained on 11/16/2021 shows sinus rhythm with a possible old anteroseptal myocardial infarction. Diagnosis/Problems Diagnosis/Problems (1) Acute ischemic left middle cerebral artery (MCA) stroke Assessment & Plan: She has suffered an acute/subacute stroke as outlined above. This raises a concern of possible atrial fibrillation. She was not taking any anticoagulation prior to this event. I recommend she continue on aspirin 81 mg daily. I will consider an implantable loop recorder following discharge for prolonged surveillance for atrial fibrillation. She is also now on high-dose statin medication. (2) Primary hypertension Assessment & Plan: Resume outpatient antihypertensive medication. We may want to allow for some permissive hypertension so as to avoid extension of the cerebral infarct. (3) Mixed hyperlipidemia Assessment & Plan: Continue high-dose statin medication (4) Chronic obstructive pulmonary disease Assessment & Plan: She uses inhalers as needed at home (5) Current use of estrogen therapy Assessment & Plan: I had previously discussed with her that prolonged estrogen replacement therapy more than 5 years can predispose to both arterial and venous atheroembolic disease. She stopped her estrogen replacement therapy in 2020, well before this recent acute event. RAYMUNDO GALDAMEZ JR, MD Nov 17, 2021 08:25
--- NOTE | 2021-11-17 08:40 | Diagnostic Imaging Report ---
PROCEDURE: US carotid duplex, bilateral. TECHNIQUE: Multiple real-time grayscale images were obtained over the carotid arteries in various projections, bilaterally. Additional spectral analysis and color Doppler duplex images were also obtained. INDICATION: Stroke. Right arm weakness. COMPARISON: None. FINDINGS: Right carotid circulation: The right common carotid artery is normal in course and caliber. A moderate burden of atherosclerotic plaque is seen in the right common carotid artery extending into the right carotid bulb and proximal right internal carotid artery. Elevated flow velocities are seen within the proximal right ICA of 168 cm/s. Left carotid circulation: The left common carotid artery is normal in course and caliber. Moderate atherosclerotic plaque is seen throughout the left carotid system. There is stenosis of the left internal carotid artery proximally secondary to atherosclerotic plaque with elevated flow velocities of 491 cm/s. Flow in the bilateral vertebral arteries is antegrade. IMPRESSION: 1. Stenosis of approximately 70-80% in the proximal left internal carotid artery secondary to atherosclerotic plaque. Consider CTA of the neck to further characterize. 2. Stenosis of 50-69% in the proximal right internal carotid artery. 3. Moderate to severe burden of atherosclerotic plaque in the bilateral carotid systems. Parameters based on the consensus panel Freeman-Scale and Doppler ultrasound criteria published September 2003, Radiology, Volume 229. DOPPLER (peak systolic velocity M/S Right Left CCA 1.07 .78 ICA Proximal 1.68 4.91 ICA Mid .73 1.59 ICA Distal .85 .66 RATIO 1.57 6.27 ECA 1.22 .99 VERT .82 0.79 Dictated by: Dictated on workstation # [id number]
[2021-11-17] MEDS ORDERED: PHARMACY TO DOSE SQ SCH (09:00)
--- NOTE | 2021-11-17 09:49 | Physical Therapy Evaluation ---
PT Evaluation-General Medical Diagnosis Admission Date Nov 16, 2021 at 14:04 Medical Diagnosis: CVA Onset Date: Nov 16, 2021 Therapy Diagnosis Therapy Diagnosis: impaired mobility Height/Weight Height (Feet): 5 Height (Inches): 2.00 Weight (Pounds): 164 Weight (Ounces): 0.0 Precautions Precautions/Isolations: Fall Prevention, Standard Precautions Referral Physician: Kenney Reason for Referral: Evaluation/Treatment Medical History Additional Medical History Past Medical History Surgeries: Yes (LEFT INGUINAL HERNIA; HYST/BSO; ) Abdominal, Hysterectomy, Oophorectomy, Tonsillectomy Respiratory: Yes (O2 AT HS PRN) Pneumonia, COPD Cardiac: Yes Hypertension, Syncope Neurological: No Reproductive Disorders: Yes (CERVICAL CANCER--S/P HYST/BSO) 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 5-Oftxkzgklz-vtfqzex completes the activity by him/herself with no assistance from a helper. 5-Set-up or Clean-up Assistance-helper sets up or cleans up; patient completes activity. [place] assists only prior to or following the activity. 4-Supervision or Touching Assistance-helper provides verbal cues and/or touching/steadying and/or contact guard assistance as patient completes activity. Assistance may be provided throughout the activity or intermittently. 3-Partial/Moderate Assistance-helper does LESS THAN HALF the effort. [place] lifts, holds or supports trunk or limbs, but provides less than half the effort. 2-Substantial/Maximal Assistance-helper does MORE THAN HALF the effort. [place] lifts or holds trunk or limbs and provides more than half the effort. 7-Urdjyutby-lmiadq does ALL the effort. Patient does none of the effort to complete the activity. Or, the assistance of 2 or more helpers is required for the patient to complete the activity. If activity was not attempted, code reason: 7-Patient Refused. 9-Not Applicable-not attempted and the patient did not perform the activity before the current illness, exacerbation or injury. 10-Not Attempted due to Environmental Limitations-(lack of equipment, weather restraints, etc.). 88-Not Attempted due to Medical Conditions or Safety Concerns. Bed Mobility: 6 Transfers (B,C,W/C): 6 Gait: 6 Stairs: 6 Indoor Mobility (Ambulation): Independent Stairs: Independent PT Evaluation-Current Subjective Patient in bed pre tx, agrees to PT, has no complaints of pain but has numbness in right arm. Pt/Family Goals to be independent at home Objective Patient Orientation: Person, Place, Situation ROM/Strength ROM Lower Extremities WNL Strength Lower Extremities LLE grossly 4/5, RLE grossly 4+/5 Neuromuscular (Tone, Coordination, Reflexes) Patient seems to have intact peripheral vision bilaterally but has a little trouble tracking on the right side Sensory Hearing: Functional Sensation Right Lower Extremit: Intact Sensation Left Lower Extremity: Intact Transfers Roll Left to Right (QC): 6 Lying to Sitting/Side of Bed(Q: 6 Sit to Stand (QC): 4 Chair/Pih-jm-Qlweq Xfer(QC): 4 Gait Does the Patient Walk?: Yes Mode of Locomotion: Walk Anticipated Mode of Locomotion: Walk Walk 10 feet (QC): 4 Walk 50 ft with 2 Turns(QC): 4 Walk 150 ft (QC): 4 Distance: 150' Gait Assistive Device: Handheld Assist Comments/Gait Description Patient needs steadying assist while ambulating, she cannot use a rolling walker due to weakness in her right hand Balance Sitting Static: Normal Sitting Dynamic: Normal Standing Static: Fair Standing Dynamic: Poor Assessment/Needs Patient in recliner post tx with nurse call, OT is here to see patient. Patient has impaired mobility, needs BREAKER UNIT ASSEMBLER for ambulation and steadying assist. Rehab Potential: Fair PT Telephone Quotation Clerk Goals [facility] Goals PT [facility] Goals Time Frame: Nov 24, 2021 Roll Left & Right (QC): 6 Sit to Lying (QC): 6 Lying-Sitting on Side/Bed(QC): 6 Sit to Stand (QC): 5 Chair/Pbk-es-Rnbis Xfer(QC): 5 Walk 10 feet (QC): 5 Walk 50ft with 2 Turns (QC): 5 Walk 150 ft (QC): 5 PT Plan Problem List Problem List: Activity Tolerance, Functional Strength, Safety, Balance, Gait, Transfer, ROM Treatment/Plan Treatment Plan: Continue Plan of Care Treatment Plan: Education, Functional Activity Rickie, Functional Strength, Gait, Safety, Therapeutic Exercise, Transfers Treatment Duration: Nov 24, 2021 Frequency: 6 times per week Estimated Hrs Per Day: .25 hour per day Patient and/or Family Agrees t: Yes Safety Risks/Education Patient Education: Gait Training, Transfer Techniques, Correct Positioning, Safety Issues Teaching Recipient: Patient Teaching Methods: Demonstration, Discussion Response to Teaching: Reinforcement Needed Discharge Recommendations Plan Patient will perform bed mobility and transfer training, balance and endurance training, functional strengthening, stair training, gait training, and education, to improve functional mobility and independence at home. Therapy Discharge Recommendati: Scheduled Assistance, Home & Family, Post Acute PT Time/GCodes Time In: 910 Time Out: 924 Total Billed Treatment Time: 14 Total Billed Treatment 1 visit YAA HOLLIDAY PT Nov 17, 2021 09:49
[2021-11-17] MEDS: ASPIRIN E.C. 325 MG (ECOTRIN) TABLET PO SCH (10:12)
--- NOTE | 2021-11-17 10:31 | Occupational Therapy Eval ---
OT Evaluation-General/PLF Medical Diagnosis Admission Date Nov 16, 2021 at 14:04 Medical Diagnosis: CVA Onset Date: Nov 16, 2021 Therapy Diagnosis Therapy Diagnosis: Impaired ROM, strength, proprioception, coordination, FM, adls Height/Weight Height (Feet): 5 Height (Inches): 2.00 Weight (Pounds): 164 Weight (Ounces): 0.0 Precautions Precautions/Isolations: Fall Prevention, Standard Precautions Referral Physician: Kenney Referral Reason: Evaluation/Treatment Medical History Pertinent Medical History: COPD, HTN Additional Medical History hyperlipiedema Current History presents to ER with R arm weakness. She underwent MRI of the brain that showed an acute/subacute stroke. Social History Home: Single Level (trailer) Current Living Status: Alone Entry Into Home: Stairs With Railing Steps Into Home: 3 ADL-Prior Level of Function SCALE: Activities may be completed with or without assistive devices. 7-Lsrostyocq-ozjzxuz completes the activity by him/herself with no assistance from a helper. 5-Set-up or Clean-up Assistance-helper sets up or cleans up; patient completes activity. [place] assists only prior to or following the activity. 4-Supervision or Touching Assistance-helper provides verbal cues and/or touching/steadying and/or contact guard assistance as patient completes activity. Assistance may be provided throughout the activity or intermittently. 3-Partial/Moderate Assistance-helper does LESS THAN HALF the effort. [place] lifts, holds or supports trunk or limbs, but provides less than half the effort. 2-Substantial/Maximal Assistance-helper does MORE THAN HALF the effort. [place] lifts or holds trunk or limbs and provides more than half the effort. 6-Nicfwvtit-idtaji does ALL the effort. Patient does none of the effort to complete the activity. Or, the assistance of 2 or more helpers is required for the patient to complete the activity. If activity was not attempted, code reason: 7-Patient Refused. 9-Not Applicable-not attempted and the patient did not perform the activity before the current illness, exacerbation or injury. 10-Not Attempted due to Environmental Limitations-(lack of equipment, weather restraints, etc.). 88-Not Attempted due to Medical Conditions or Safety Concerns. Self Care: Independent Functional Cognition: Independent DME/Equipment: Grab Bars, Tub/Shower Drive Self: Yes OT Current Status Subjective Denies pain, but reports numbness/tingling in RUE from elbow to fingertips Appearance Left sitting in chair, staff entering room for echo procedure. Mental Status/Objective Patient Orientation: Person, Place, Situation Attachments: IV, Telemetry Current Upper Extremity ROM LUE WNL RUE: impaired R shoulder flexion: ~60 degrees AROM, full PROM, drift present R elbow: 20-100 degrees Impaired finger opposition Upper Extremity Strength LUE: WFL RUE: 2+/5 Fair electron microscopist strength ADL-Treatment Oral Hygiene (QC): 3 On/Off Footwear (QC): 3 Pt ambulating in estrella with physical therapy at OT arrival; hand held assist. Does no appear to have any Losses of balance. R eye appears to drift laterally, unable to sustain focus. While sitting in chair, pt demonstrates Good fl exibility and no difficulties reaching feet. Assist only needed to don/doff socks secondary to impaired coordination, proprioception and dexterity of R hand. At this time pt will require assist with bilateral integration tasks such as oral care, cutting food, tieing shoes, etc. Limited assessment at this time due to staff needing to perform echocardiogram. Education OT Patient Education: Correct positioning, Disease process, Modified ADL techniques, Progress toward Goal/Update tx plan, Purpose of tx/functional activities, Rehab process, Safety issues Teaching Recipient: Patient Teaching Methods: Discussion Response to Teaching: Verbalize Understanding, Reinforcement Needed OT Half-Way Goals Utilities Estimator And Drafter Goals Time Frame: Dec 01, 2021 Oral Hygiene (QC): 4 Toileting Hygiene (QC): 4 Upper Body Dressing (QC): 4 Lower Body Dressing (QC): 4 On/Off Footwear (QC): 4 1=Demonstrate adherence to instructed precautions during ADL tasks. 2=Patient will verbalize/demonstrate understanding of assistive devices/modifications for ADL. 3=Patient will improve strength/tolerance for activity to enable patient to perform ADL's. OT Education/Plan Problem List/Assessment Assessment: Decreased UE Strength, Impaired Coordination, Impaired Funct Balance, Impaired I ADL's, Impaired Self-Care Skills, Restricted Funct UE ROM Discharge Recommendations Plan/Recommendations: Continue POC Therapy Discharge Recommendati: Post Acute OT Treatment Plan/Plan of Care Treatment,Training & Education: Yes Patient would benefit from OT for education, treatment and training to promote independence in ADL's, mobility, safety and/or upper extremity function for ADL's. Plan of Care: ADL Retraining, Functional Mobility, UE Funct Exercise/Act, UE Neuromus Re-Ed/Coord, Visual/Perceptual Retrain Treatment Duration: Dec 01, 2021 Frequency: 3 times per week Estimated Hrs Per Day: .25 hour per day Rehab Potential: Fair 3-5x/week Time/GCodes Start Time: 09:20 Stop Time: 09:31 Total Time Billed (hr/min): 11 Billed Treatment Time 1, Barb Blake OT Nov 17, 2021 10:31
[2021-11-17] MEDS ORDERED: LEVO88TA54 PO (11:27)
--- NOTE | 2021-11-17 11:54 | History & Physical-Hospitalist ---
CRISTIAN MUIR 11/17/21 1154: History of Present Illness HPI/Chief Complaint The patient is a 76 YO female with a history of COPD, HTN, hypertrigyleridemia, estrogen therapy, and a 50 pack year hx of smoking ( quit in 2014), who is in the hospital for a CVA. The patient reports right arm and hand weakness and numbness which started around [place] time. Her R arm and hand weakness is still present today. This is the first time she has been told of having a stroke. The patient is not in any pain. She does not have any other complaints. Date Seen 11/17/21 Time Seen by a Provider: 10:00 Attending Physician Amina Moulton MD PCP No,Local Physician Referring Physician Date of Admission Nov 16, 2021 at 14:04 Home Medications & Allergies Home Medications Reviewed patient Home Medication Reconciliation performed by pharmacy medication reconciliations domestic technician and/or nursing. Patients Allergies have been reviewed. Allergies Allergies Coded Allergies hydrocodone (Verified Allergy, Mild, SEVERE VOMITING, 11/16/21) propoxyphene (Verified Allergy, Mild, SEVERE VOMITING, 11/16/21) Past Dljzsbk-Hxgrmf-Xodial Hx Patient Social History Tobacco Use?: No Smoking Status: Former Smoker Substance use?: No Alcohol Use?: No Pt feels they are or have been: No Immunizations Up To Date First/Initial COVID19 Vaccinat: January 2021 Second COVID19 Vaccination Carlos: February 2021 Seasonal Allergies Seasonal Allergies: Yes Current Status Advance Directives: No Communicates: Verbally Primary Language: Citizen Of [place] Preferred Spoken Language: Citizen [place] Is interpretation needed?: No Sensory deficits: Vision impairment Implanted or Applied Medical D: None Past Medical History Surgeries: Abdominal, Hysterectomy, Oophorectomy, Tonsillectomy Pneumonia, COPD Hypertension, 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 Abdominal Hernia Arthritis Hyperthyroidism, Hypothyroidsim Tonsilitis Cervical Did You Recieve Any Treatments: Yes What Type of Treatment Did You: Surgical Intervention Blood Disorders: No Family Medical History Coronary thrombosis 19 FATHER, Onset:Unknown FH: blood disorder daughter, Onset: - FH: hypothyroidism son, Onset:Unknown FH: syncope granddaughter, Onset: - FHx: epilepsy 19 MOTHER, Onset:Unknown Kidney stones granddaughter, Onset: Myocardial infarction 19 FATHER, Onset:Unknown Thyroid disease 19 MOTHER, Onset:Unknown Review of Systems Constitutional: No chills, No fever EENTM: No blurred vision, No double vision Respiratory: No cough; short of breath (d/t COPD) Cardiovascular: No chest pain, No palpitations Gastrointestinal: no symptoms reported Genitourinary: no symptoms reported Musculoskeletal: other (knee pain dt arthritis ) Skin: no symptoms reported Psychiatric/Neurological: Denies Anxiety, Denies Depressed, Denies Emotional Problems Physical Exam Physical Exam Vital Signs Vital Signs - First Documented 11/16/21 11/16/21 10:20 21:00 Temp 36.3 Pulse 106 Resp 16 B/P (MAP) 129/81 (97) Pulse Ox 98 O2 Delivery Room Air O2 Flow Rate 2.00 Capillary Refill : Less Than 3 Seconds Height, Weight, BMI Height: 5'2.00" Weight: 164lbs. 0.0oz. 74.511578eo; 28.21 BMI Method:Stated General Appearance: No Apparent Distress Eyes: Bilateral Eye Normal Inspection, Bilateral Eye PERRL, Bilateral Eye EOMI HEENT: PERRL/EOMI, Pharynx Normal Respiratory: Chest Non Tender, No Accessory Muscle Use, No Respiratory Distress, Wheezing (Bilaterally, but R side more than L) Cardiovascular: Regular Rate, Rhythm, No Edema, No Murmur Gastrointestinal: Normal Bowel Sounds, No Organomegaly, No Pulsatile Mass, Non Tender, Soft Extremity: No Calf Tenderness, No Pedal Edema, Other (The right arm had weakened: flexion of the shoulder ( only could flex to 90 degrees), internal rotation, external rotation, and flexion of the elbow. R hand had decreased outsole molder strength. No sensory defects found on PE. ) Neurologic/Psychiatric: Alert, Oriented x3, Normal Mood/Affect, Motor Weakness (RUE ) Skin: Normal Color, Warm/Dry Results Results/Procedures Labs Laboratory Tests 11/16/21 11:44 11/17/21 05:45 Patient resulted labs reviewed. Assessment/Plan Admission Diagnosis MCA stroke HTN Mixed Hypertriglyceridemia COPD estrogen use therapy DVT prophylaxis MCA stroke Mixed Hypertriglyceridemia Continue on ASA daily, switch to 81 mg QD from 325mg on DC. Continue Statin therapy. Cardiology following. PT will not need internal carotid intervention at this time, as L internal carotid had 70-80 percent stenosis, and the R internal carotid had 50-69 percent stenosis. HTN COPD Continue home meds. Estrogen use therapy Advise to DC. DVT prophylaxis SC Lovenox 40mg daily. AMINA MOULTON MD 11/17/212126: Past Jtudacb-Gcliib-Udeerp Hx Family Medical History Coronary thrombosis 19 FATHER, Onset:Unknown FH: blood disorder daughter, Onset: - FH: hypothyroidism son, Onset:Unknown FH: syncope granddaughter, Onset: - FHx: epilepsy 19 MOTHER, Onset:Unknown Kidney stones granddaughter, Onset: - Myocardial infarction 19 FATHER, Onset:Unknown Thyroid disease 19 MOTHER, Onset:Unknown Assessment/Plan Admission Diagnosis Admission Status: Inpatient Order (span 2 midnights) Reason for Inpatient Admission: Acute ischemic stroke, needs monitoring for possible a fib Supervisory-Addendum Brief Verification & Attestation Participated in pt care: history, physical Personally performed: exam, history Care discussed with: Medical Student Procedures: n/a Verification and Attestation of Medical Student E/M Service A medical student performed and documented this service in my presence. I reviewed and verified all information documented by the medical student and made modifications to such information, when appropriate. I personally performed the physical exam and medical decision making. Amina Moulton, Nov 17, 2021,21:27 CRISTIAN MUIR Nov 17, 2021 11:54 AMINA MOULTON MD Nov 17, 2021 21:27
[2021-11-17] MEDS: ENOXAPARIN 40 MG/0.4 ML (LOVENOX) SYR SC SCH (16:59)
[2021-11-18 03:57] VITALS: BP_SYST 117; BP_SYST 148; BP_DIAS 71; BP_DIAS 85
[2021-11-18 08:00] VITALS: BP 121/71
[2021-11-18] MEDS: ASPIRIN E.C. 325 MG (ECOTRIN) TABLET PO SCH (08:47)
[2021-11-18] MEDS ORDERED: LEVOTHYROXINE 88 MCG (LEVOTHORID) TAB PO SCH (09:00)
[2021-11-18] MEDS ORDERED: amLODIPine 10 MG (NORVASC) TAB PO SCH (09:00)
[2021-11-18] MEDS ORDERED: PANTOPRAZOLE 20 MG TABLET (PROTONIX) PO SCH (09:00)
[2021-11-18] MEDS ORDERED: LOSARTAN 100 MG (COZAAR) TABLET PO SCH (09:00)
--- NOTE | 2021-11-18 10:08 | Occupational Ther Daily Note ---
OT Current Status-Daily Note Subjective Pt alert, lying in bed. Pt agrees to therapy. No c/o pain. Mental Status/Objective Patient Orientation: Person, Place, Time, Situation Attachments: IV ADL-Treatment Pt demonstrates decreased strength in R UE. Pt has difficulty with full AROM though is able to complete full ROM with R UE AAROM. Pt's correspondence transcriber is full finger extension into opposition. Difficulty with full hand extension. Gave pt exercises to strengthen hand extension, shldr abd and shldr retraction, to be completed 5 sets multiple time per day. Pt is up ad luis miguel in room and able to complete toileting, oral care and eating independently. Pt will continue to need assistance for strengthening and increasing AROM of R UE for daily functional tasks. After therapy, pt sitting EOB eating food. All needs met. Call light/phone in reach. Therapy Code Descriptions/Definitions Functional [place] Measure: 0=Not Assessed/NA 4=Minimal Assistance 1=Total Assistance 5=Supervision or Setup 2=Maximal Assistance 6=Modified [place] 3=Moderate Assistance 7=Complete IndependenceSCALE: Activities may be completed with or without assistive devices. 9-Gbbyeptffx-xoxgmpb completes the activity by him/herself with no assistance from a helper. 5-Set-up or Clean-up Assistance-helper sets up or cleans up; patient completes activity. [place] assists only prior to or following the activity. 4-Supervision or Touching Assistance-helper provides verbal cues and/or touching/steadying and/or contact guard assistance as patient completes activity. Assistance may be provided throughout the activity or intermittently. 3-Partial/Moderate Assistance-helper does LESS THAN HALF the effort. [place] lifts, holds or supports trunk or limbs, but provides less than half the effort. 2-Substantial/Maximal Assistance-helper does MORE THAN HALF the effort. [place] lifts or holds trunk or limbs and provides more than half the effort. 8-Pjikagpbk-ijswqb does ALL the effort. Patient does none of the effort to complete the activity. Or, the assistance of 2 or more helpers is required for the patient to complete the activity. If activity was not attempted, code reason: 7-Patient Refused. 9-Not Applicable-not attempted and the patient did not perform the activity before the current illness, exacerbation or injury. 10-Not Attempted due to Environmental Limitations-(lack of equipment, weather restraints, etc.). 88-Not Attempted due to Medical Conditions or Safety Concerns. Eating (QC): 6 Oral Hygiene (QC): 6 Toileting Hygiene (QC): 6 OT Key Maker Goals Key Maker Goals Time Frame: Dec 01, 2021 Oral Hygiene (QC): 4 Toileting Hygiene (QC): 4 Upper Body Dressing (QC): 4 Lower Body Dressing (QC): 4 On/Off Footwear (QC): 4 1=Demonstrate adherence to instructed precautions during ADL tasks. 2=Patient will verbalize/demonstrate understanding of assistive devices/modifications for ADL. 3=Patient will improve strength/tolerance for activity to enable patient to perform ADL's. OT Education/Plan Problem List/Assessment Assessment: Decreased Activ Tolerance, Impaired Self-Care Skills, Restricted Funct UE ROM Discharge Recommendations Plan/Recommendations: Continue POC Treatment Plan/Plan of Care Patient would benefit from OT for education, treatment and training to promote independence in ADL's, mobility, safety and/or upper extremity function for ADL's. Plan of Care: ADL Retraining, Functional Mobility, UE Funct Exercise/Act, UE Neuromus Re-Ed/Coord, Visual/Perceptual Retrain Treatment Duration: Dec 01, 2021 Frequency: 3 times per week Estimated Hrs Per Day: .25 hour per day Rehab Potential: Fair Time/GCodes Start Time: 08:40 Stop Time: 09:09 Total Time Billed (hr/min): 29 Billed Treatment Time 1 visit-ADL 1 (20 min) EX 1 (9 min) PABLO HOOD Nov 18, 2021 10:08
--- NOTE | 2021-11-18 10:33 | Progress Note - Hospitalist ---
Subjective HPI/CC On Admission Date Seen by Provider: Nov 18, 2021 Time Seen by Provider: 10:00 The patient is a 76 YO female with a history of COPD, HTN, hypertrigyleridemia, estrogen therapy, and a 50 pack year hx of smoking ( quit in 2014), who is in the hospital for a CVA. The patient reports right arm and hand weakness and numbness which started around [place] time. Her R arm and hand weakness is still present today. This is the first time she has been told of having a stroke. The patient is not in any pain. She does not have any other complaints. Subjective/Events-last exam The patient was in laying in bed comfortably this morning. She denies any acute events overnight. She denies any pain. She denies any worsening R arm/ hand weakness. She denies headaches or vision changes. Review of Systems General: No Chills; Other (no fever ) HEENT: No Head Aches, No Visual Changes Pulmonary: No Dyspnea, No Cough Cardiovascular: No: Chest Pain, Palpitations Gastrointestinal: No: Nausea, Vomiting Musculoskeletal: other (no joint pain ); No: back pain Objective Exam Vital Signs Vital Signs Date Time Temp Pulse Resp B/P (MAP) Pulse Ox O2 Delivery O2 Flow Rate FiO2 11/18/21 12:45 87 11/18/21 09:00 96 Room Air 11/18/21 08:00 35.4 18 121/71 (88) 1.50 Capillary Refill : Less Than 3 Seconds General Appearance: No Apparent Distress, WD/WN HEENT: PERRL/EOMI, Pharynx Normal, Moist Mucous Membranes Respiratory: Chest Non Tender, Lungs Clear, Normal Breath Sounds, No Accessory Muscle Use, No Respiratory Distress Cardiovascular: Regular Rate, Rhythm, No Edema, No Murmur, Normal Peripheral Pulses Gastrointestinal: No Organomegaly, No Pulsatile Mass, Non Tender, Soft Extremity: No Calf Tenderness, No Pedal Edema, Other (R arm weakness slightly improved compared to yesterday. R hand demurrage man strength moderately improved compared to yesterday. ) Neurologic/Psychiatric: Alert, Oriented x3, Normal Mood/Affect Skin: Normal Color, Warm/Dry Results/Procedures Lab Patient resulted labs reviewed. Assessment/Plan Assessment and Plan Assess & Plan/Chief Complaint MCA stroke HTN Mixed Hypertriglyceridemia COPD estrogen use therapy DVT prophylaxis MCA stroke Mixed Hypertriglyceridemia Continue on ASA daily, switch to 81 mg QD from 325mg on DC. Continue Statin therapy. Cardiology following for possible loop implant for AFIB. Will try to DC today or tomorrow. HTN COPD Continue home meds. Estrogen use therapy Advise to DC. DVT prophylaxis SC Lovenox 40mg daily. CRISTIAN MUIR Nov 18, 2021 10:33
--- NOTE | 2021-11-18 11:56 | Physical Therapy Daily Note ---
PT Daily Note-Current Subjective Patient is in bed and agrees to walk and PT today. Mental Status Patient Orientation: Person, Place, Time, Situation Attachments: Oxygen Transfers SCALE: Activities may be completed with or without assistive devices. 5-Odzrogfans-patuscz completes the activity by him/herself with no assistance from a helper. 5-Set-up or Clean-up Assistance-helper sets up or cleans up; patient completes activity. [place] assists only prior to or following the activity. 4-Supervision or Touching Assistance-helper provides verbal cues and/or touching/steadying and/or contact guard assistance as patient completes activit y. Assistance may be provided throughout the activity or intermittently. 3-Partial/Moderate Assistance-helper does LESS THAN HALF the effort. [place] lifts, holds or supports trunk or limbs, but provides less than half the effort. 2-Substantial/Maximal Assistance-helper does MORE THAN HALF the effort. [place] lifts or holds trunk or limbs and provides more than half the effort. 4-Wqgtprrbe-vlyiiw does ALL the effort. Patient does none of the effort to complete the activity. Or, the assistance of 2 or more helpers is required for the patient to complete the activity. If activity was not attempted, code reason: 7-Patient Refused. 9-Not Applicable-not attempted and the patient did not perform the activity before the current illness, exacerbation or injury. 10-Not Attempted due to Environmental Limitations-(lack of equipment, weather restraints, etc.). 88-Not Attempted due to Medical Conditions or Safety Concerns. Sit to Lying (QC): 6 Lying to Sitting/Side of Bed(Q: 6 Sit to Stand (QC): 5 Chair/Pru-ee-Zgskh Xfer(QC): 5 Patient required cues to push up from the bed when performing sit to stand transfer. Gait Training Distance: >300' Walk 10 feet (QC): 4 Walk 50 ft with 2 Turns(QC): 4 Walk 150 ft (QC): 4 Gait Assistive Device: FWW Patient attempted to ambulate without FWW to begin with but requested to walk next to the wall for additional support. FWW was added to give the patient additional support and patient ambulated with CGA throughout the rest of the treatment session. Patient reported slight fatigue after ambulation but reported that her knee pain was limiting her ambulation distance. Assessment Patient required CGA with ambulation and FWW after feelings of unsteadiness. Patient required a few breaks while ambulating to catch her breath. PT Prison Goals Clearance Rep Goals PT Clearance Rep Goals Time Frame: Nov 24, 2021 Roll Left & Right (QC): 6 Sit to Lying (QC): 6 Lying-Sitting on Side/Bed(QC): 6 Sit to Stand (QC): 5 Chair/Kui-nk-Moybb Xfer(QC): 5 Walk 10 feet (QC): 5 Walk 50ft with 2 Turns (QC): 5 Walk 150 ft (QC): 5 PT Plan Treatment/Plan Treatment Plan: Continue Plan of Care Treatment Plan: Education, Functional Activity Rickie, Functional Strength, Gait, Safety, Therapeutic Exercise, Transfers Treatment Duration: Nov 24, 2021 Frequency: 6 times per week Estimated Hrs Per Day: .25 hour per day Patient and/or Family Agrees t: Yes Time/GCodes Time In: 1100 Time Out: 1115 Total Billed Treatment Time: 15 Total Billed Treatment 1 KERVIN MERAZ PT Nov 18, 2021 11:56
[2021-11-18 12:00] VITALS: BP 109/64
--- NOTE | 2021-11-18 12:46 | Cardiology Progress Note ---
Progress Note-Cardiology Events since last exam Date Seen by Provider: Nov 18, 2021 Time Seen by Provider: 11:30 Events since last exam I am following her due to ischemic stroke. I had previously seen her in my office due to syncope and lightheaded spells. She is working with physical therapy to regain some strength in her right arm. She denies any new neurologic complaints. She denies chest discomfort, dyspnea, palpitations, syncope, or ankle edema. She hopes to go home later today. Vitals Last set of Vitals Signs Vital Signs 11/18/21 11/18/21 08:00 09:00 Temp 35.4 Pulse 89 Resp 18 B/P (MAP) 121/71 (88) Pulse Ox 96 O2 Delivery Room Air O2 Flow Rate 1.50 Exam Vital Signs Vital Signs Date Time Temp Pulse Resp B/P (MAP) Pulse Ox O2 Delivery O2 Flow Rate FiO2 11/18/21 09:00 96 Room Air 11/18/21 08:00 35.4 89 18 121/71 (88) 1.50 Physical Exam General: Alert. No acute distress. Eye: No xanthelasma. HENT: Normocephalic. Neck: Jugular venous pressure does not appear elevated. Respiratory: Lungs are clear to auscultation. Respirations are non-labored. Breath sounds are equal. Symmetrical chest wall expansion. Cardiovascular: Normal rate. Regular rhythm. No murmur. No gallop. No edema. Gastrointestinal: Soft. Normal bowel sounds. Skin: Warm. Dry. Neurologic: Alert and oriented to person, place, time. Cranial nerves 3-11 grossly intact. Right arm weakness. Psychiatric: Cooperative. Appropriate mood & affect. Diagnosis/Problems Diagnosis/Problems (1) Acute ischemic left middle cerebral artery (MCA) stroke Assessment & Plan: She has suffered an acute/subacute stroke as outlined above. This raises a concern of possible atrial fibrillation. She was not taking any anticoagulation prior to this event. I recommend she continue on aspirin 81 mg daily. I will have her scheduled for an implantable loop recorder following discharge for prolonged surveillance for atrial fibrillation. She is also now on high-dose statin medication. (2) Primary hypertension Assessment & Plan: Continue outpatient antihypertensive medication. We may want to allow for some permissive hypertension so as to avoid extension of the cerebral infarct. (3) Mixed hyperlipidemia Assessment & Plan: Continue high-dose statin medication (4) Chronic obstructive pulmonary disease Assessment & Plan: She uses inhalers as needed at home (5) Current use of estrogen therapy Assessment & Plan: I had previously discussed with her that prolonged estrogen replacement therapy more than 5 years can predispose to both arterial and venous atheroembolic disease. She stopped her estrogen replacement therapy in 2020, well before this recent acute event. RAYMUNDO GALDAMEZ JR, MD Nov 18, 2021 12:46
--- NOTE | 2021-11-18 12:58 | Discharge Summary ---
Diagnosis/Chief Complaint Date of Admission Nov 16, 2021 at 14:04 Date of Discharge Discharge Summary-Simple/Stand Consultations Discharge Physical Examination Allergies: Coded Allergies: hydrocodone (Verified Allergy, Mild, SEVERE VOMITING, 11/16/21) propoxyphene (Verified Allergy, Mild, SEVERE VOMITING, 11/16/21) Vitals & I&Os Vital Sign - Last 12Hours Date Time Temp Pulse Resp B/P (MAP) Pulse Ox O2 Delivery O2 Flow Rate FiO2 11/18/21 12:45 87 11/18/21 09:00 96 Room Air 11/18/21 08:00 35.4 18 121/71 (88) 1.50 Intake and Output 11/18/21 00:00 Intake Total 1040 ml Balance 1040 ml Hospital Course See final discharge diagnosis. Discharge Instructions to patient/family Please see electronic discharge instructions given to patient. Discharge Medications Reviewed and agree with Discharge Medication list on patient's Discharge Instruction sheet JUSTIN AHUMADA MD Nov 18, 2021 12:58
[2021-11-18] MEDS ORDERED: ASPI-1238 PO (13:00)
[2021-11-18] MEDS ORDERED: ATOR80TA76 PO (13:00)
--- NOTE | 2021-11-18 13:01 | Discharge Summary ---
Discharge [email or web address] Reconcile Patient Problems Problems Reviewed?: Yes Discharge Medications New, Converted or Re-Newed RX: Transmitted to Pharmacy New Medications: Aspirin (Aspirin EC) 81 Mg Tablet. 81 MG PO DAILY, #30 TAB Atorvastatin Calcium (Atorvastatin Calcium) 80 Mg Tablet 80 MG PO DAILY, #30 TAB Continued Medications: Albuterol Sulfate (Proair Hfa) 1 Puff Puff 2 PUFF IH QID PRN for SHORTNESS OF BREATH, INHALER Amlodipine Besylate (Amlodipine Besylate) 10 Mg Tablet 10 MG PO DAILY, TAB Calcium Carbonate/Vitamin D3 (Calcium 500 + D Tablet) 1 Each Tablet 1 TAB PO DAILY, TAB Levothyroxine Sodium (Levothyroxine Sodium) 88 Mcg Tablet 88 MCG PO DAILY, TAB Losartan Potassium (Losartan Potassium) 100 Mg Tablet 100 MG PO DAILY, TAB Omeprazole (Omeprazole) 20 Mg Capsule.dr 20 MG PO DAILY, CAP Discontinued Medications: Meloxicam (Meloxicam) 15 Mg Tablet 15 MG PO DAILY, TAB Patient Instructions Goal/Follow Up Appt: F.u next week with PCP at [facility] Make sure to f.u with Dr Ambrocio for Loop implant Activity & Diet Discharge Diet: Cardiac Diet Activity as Tolerated: Yes Orders-Post D/C & Referrals New order for oxygen sent 2L with activity JUSTIN AHUMADA MD Nov 18, 2021 13:01
== END 2021-11-18 16:00 | disposition home or self-care (01) | DRG 66 ==
LOC: EDUNIT# 10:12 → ER 10:15 → 4TH 14:04
PROVIDERS: ADMIT Family Medicine; ATTEND Family Medicine
DX: I63.89 Other cerebral infarction (principal); G83.24 Monoplegia of upper limb affecting left nondominant side; R29.703 NIHSS score 3; J44.9 Chronic obstructive pulmonary disease, unspecified; I10 Essential (primary) hypertension; M19.90 Unspecified osteoarthritis, unspecified site; E03.9 Hypothyroidism, unspecified; E78.1 Pure hyperglyceridemia; Z79.818 Long term (current) use of other agents affecting estrogen receptors and estrogen levels; R20.0 Anesthesia of skin; Z87.891 Personal history of nicotine dependence; I48.91 Unspecified atrial fibrillation; E78.2 Mixed hyperlipidemia
CPT/HCPCS: 36415; 70450; 70551; 71045; 72141; 80053; 80061; 84484; 85025; 85379; 85610; 85730; 93005; 93041; 93306; 93880; 94761

== ENCOUNTER 2021-12-01 08:15 | Day surgery (SDC) | payer MEDICARE ==
[~2021-12-01] VITALS: Ht 157.4 cm; Wt 72.1 kg
[~2021-12-01 08:15] MED LIST changes: +ASPI-1238 PO; +ATOR80TA76 PO; +LEVO88TA54 PO
[2021-12-01] MEDS ORDERED: LIDOCAINE 2% 20 ML (XYLOCAINE) VIAL INJ ONE (08:30)
[2021-12-01] MEDS ORDERED: LIDOCAINE 2% 20 ML (XYLOCAINE) VIAL ONE (08:31)
[2021-12-01 08:44] VITALS: BP 119/72
--- NOTE | 2021-12-01 09:33 | Cardiac Procedure Note ---
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 PROCEDURE DESCRIPTION:: After informed consent and in the fasting state, the left pectoral area was prepped and draped in the usual sterile fashion. 2% lidocaine was then used for local anesthesia in the fourth intercostal space in the midclavicular line. A zackery was made in the skin using the insertion kit. I subsequently inserted a Medtronic LINQ II loop recorder (serial# [id number]) using the insertion tool. The device was interrogated and there was good R wave amplitude. Dermabond was applied to the incision and a sterile dressing was applied. IMPRESSION: 1. Status post implantable loop recorder insertion with a Medtronic LINQ II loop recorder (serial# [id number]). Certain portions of this document may have been dictated utilizing voice recognition technology. Inherent to this technology, typographical and grammatical errors may exist. As much as I am diligent to identify and correct these mistakes, some errors may remain in the document. RAYMUNDO GALDAMEZ JR, MD Dec 01, 2021 09:33
== END 2021-12-01 09:33 | disposition home or self-care (01) ==
LOC: CATH 08:15
PROVIDERS: ATTEND Internal Medicine Cardiovascular Disease
DX: I63.89 Other cerebral infarction (principal); J44.9 Chronic obstructive pulmonary disease, unspecified; E78.2 Mixed hyperlipidemia; I10 Essential (primary) hypertension; E03.9 Hypothyroidism, unspecified; E66.3 Overweight; Z68.29 Body mass index [BMI] 29.0-29.9, adult; Z79.890 Hormone replacement therapy; Z79.899 Other long term (current) drug therapy
CPT/HCPCS: 33285; C1764

== ENCOUNTER → 2022-02-13 | Outpatient (CLI) | payer MEDICARE ==
[2022-02-13 12:13] LABS: BASOPHILS # (AUTO) 0.1 10^3/uL (0.0-0.1); BASOPHILS % (AUTO) 1 % (0-10); EOSINOPHILS # (AUTO) 0.2 10^3/uL (0.0-0.3); EOSINOPHILS % (AUTO) 3 % (0-10); HEMATOCRIT 39 % (35-52); LYMPHOCYTES # (AUTO) 2.2 10^3/uL (1.0-4.0); LYMPHOCYTES % (AUTO) 33 % (12-44); MEAN CORPUSCULAR HEMOGLOBIN 30 pg (25-34); MEAN CORPUSCULAR HGB CONC 34 g/dL (32-36); MEAN CORPUSCULAR VOLUME 90 fL (80-99); MEAN PLATELET VOLUME 10.2 fL (9.0-12.2); MONOCYTES # (AUTO) 0.8 10^3/uL (0.0-1.0); MONOCYTES % (AUTO) 12 % (0-12); NEUTROPHILS # (AUTO) 3.6 10^3/uL (1.8-7.8); NEUTROPHILS % (AUTO) 52 % (42-75); PLATELET COUNT 229 10^3/uL (130-400); WHITE BLOOD COUNT 6.9 10^3/uL (4.3-11.0)
[2022-02-13 12:43] LABS: ALBUMIN 4.3 GM/DL (3.2-4.5); BILIRUBIN,TOTAL 0.8 MG/DL (0.1-1.0); CALCIUM 9.2 MG/DL (8.5-10.1); CREATININE SERUM 1.15 MG/DL (0.60-1.30); POTASSIUM 4.4 MMOL/L (3.6-5.0); TOTAL PROTEIN 7.4 GM/DL (6.4-8.2)
== END ==
LOC: LAB 11:53
PROVIDERS: ATTEND Thoracic Surgery (Cardiothoracic Vascular Surgery)
DX: Z01.812 Encounter for preprocedural laboratory examination (principal); I65.23 Occlusion and stenosis of bilateral carotid arteries
CPT/HCPCS: 36415; 80053; 85025

== ENCOUNTER → 2022-02-14 | Outpatient (CLI) | payer MEDICARE | LOC: LABNPT 08:21 | PROVIDERS: ATTEND Thoracic Surgery (Cardiothoracic Vascular Surgery) | DX: Z20.822 Contact with and (suspected) exposure to COVID-19 (principal) | CPT/HCPCS: 87636 ==

== ENCOUNTER 2022-07-17 05:36 | Outpatient (CLI) | payer MEDICARE ==
[~2022-07-17] VITALS: Ht 157.5 cm; Wt 71.8 kg
[2022-07-17] MEDS ORDERED: TERA1CAP3 PO (13:12)
[2022-07-17] MEDS ORDERED: HYDR25TA4 PO (13:12)
[2022-07-17] MEDS ORDERED: MELO15TA39 PO (13:12)
[2022-07-17] MEDS ORDERED: CLOP75TA28 PO (13:12)
[2022-07-17] MEDS ORDERED: IPRA3AMP31 IH (13:12)
== END 2022-07-17 13:17 | disposition home or self-care (01) ==
LOC: PREOP 05:36
PROVIDERS: ATTEND Specialist
DX: Z01.818 Encounter for other preprocedural examination (principal)

== ENCOUNTER 2022-07-21 09:01 | Day surgery (SDC) | payer MEDICARE ==
[~2022-07-21] VITALS: Ht 157.5 cm; Wt 71.8 kg
[~2022-07-21 09:01] MED LIST changes: +CLOP75TA28 PO; +HYDR25TA4 PO; +IPRA3AMP31 IH; +TERA1CAP3 PO
[2022-07-21] MEDS ORDERED: TIMOLOL MALEATE 0.5% 5 ML (TIMOPTIC) BTL OU PRN (09:15)
[2022-07-21] MEDS ORDERED: POVIDONE (BETADINE) OPHTH SOLN 5% 30 ML OP ONE (09:15)
[2022-07-21] MEDS ORDERED: MOXIFLOXACIN OPHTH SOLN 5 MG/ML 0.3 ML SYRINGE OP ONE (09:15)
[2022-07-21] MEDS ORDERED: acetaZOLAMIDE ER 500 MG CAP (DIAMOX SEQUELS) PO ONE (09:15)
[2022-07-21] MEDS: TETRACAINE 0.5% OPHTH SOLN 4 ML BTL (SINGLE DOSE ONLY) OU PRN ×4 (09:24→09:40)
[2022-07-21] MEDS ORDERED: MIDAZOLAM 2 MG/2 ML (VERSED) VIAL ONE (09:27)
[2022-07-21] MEDS: PHENYLEPHRINE 10% OPHTH (NEO-SYN) 5 ML BTL OU SCH ×3 (09:30→09:40)
[2022-07-21] MEDS: TROPICAMIDE 1% OPH SOLN (MYDRIACYL) 15 ML BTL OP SCH ×3 (09:30→09:41)
[2022-07-21 09:33] VITALS: BP 147/71
--- NOTE | 2022-07-21 09:53 | Ophthalmologist Pre-Op Note ---
Pre-Operative Progress Note H&P Reviewed The H&P was reviewed, patient examined and no changes noted. Date H&P Reviewed: Jul 21, 2022 Time H&P Reviewed: 09:53 Pre-Op Dx Cataract, Right Eye JULISSA MIDDLETON MD Jul 21, 2022 09:53
--- NOTE | 2022-07-21 10:16 | Ophthalmology Operative Report ---
Cataract removal/placement IOL PREOPERATIVE DIAGNOSIS: Cataract Right Eye POSTOPERATIVE DIAGNOSIS: Cataract Right Eye PROCEDURE: Cataract removal and placement of posterior chamber implant, right eye SURGEON: Kyrie Middleton ANESTHESIA: Topical with sedation COMPLICATIONS: None ESTIMATED BLOOD LOSS: Minimal DESCRIPTION OF PROCEDURE: After proper informed consent was obtained, the patient, a 77 female, was taken to the Operating Room and the right eye was anesthetized with tetracaine. The right eye was then prepped and draped in the usual manner. A wire lid speculum was placed. A paracentesis was made at the left hand position. Preservative free lidocaine was injected into the anterior chamber followed by viscoelastic. A clear corneal incision was made in the temporal position. A capsulorrhexis was preformed and the central nuclear and cortical material were removed. The posterior capsule was polished and Dennis 21.0 AU00T0 IOL was placed into the capsular bag. The residual viscoelastic was aspirated and balanced saline solution was injected into the anterior chamber. Moxifloxacin was injected into the anterior chamber. The wound was checked and found to be water tight. The patient tolerated the procedure well without complications. KYRIE MIDDLETON MD Jul 21, 2022 10:16
[2022-07-21 10:22] VITALS: BP 136/68
--- NOTE | 2022-07-21 14:41 | Anesthesia-General Post-Op ---
MAC Patient Condition Mental Status/LOC: Same as Preop Cardiovascular: Satisfactory Nausea/Vomiting: Absent Respiratory: Satisfactory Pain: Controlled Complications: Absent Post Op Complications Complications None Follow Up Care/Instructions Patient Instructions None needed. Anesthesiology Discharge Order Discharge Order Patient is doing well, no complaints, stable vital signs, no apparent adverse anesthesia problems. No complications reported per nursing. ALAN DIAZ CRNA Jul 21, 2022 14:41
== END 2022-07-21 10:28 | disposition home or self-care (01) ==
LOC: SDC 09:01
PROVIDERS: ATTEND Specialist
DX: H25.9 Unspecified age-related cataract (principal); Z87.891 Personal history of nicotine dependence; Z95.5 Presence of coronary angioplasty implant and graft; Z79.82 Long term (current) use of aspirin
CPT/HCPCS: 66984; V2632

== ENCOUNTER 2022-08-04 05:35 | Outpatient (CLI) | payer MEDICARE | END 2022-08-08 13:58 | disposition home or self-care (01) | LOC: PREOP 05:35 | PROVIDERS: ATTEND Specialist | DX: Z01.818 Encounter for other preprocedural examination (principal) ==

== ENCOUNTER → 2022-08-11 | Day surgery (SDC) | payer MEDICARE ==
[~2022-08-11] VITALS: Ht 157.5 cm; Wt 71.8 kg
[~2022-08-11] MED LIST changes: +MOXIFLOXACIN OPHTH SOLN 5 MG/ML 0.3 ML SYRINGE OP ONE; +POVIDONE (BETADINE) OPHTH SOLN 5% 30 ML OP ONE; +TIMOLOL MALEATE 0.5% 5 ML (TIMOPTIC) BTL OU PRN; +acetaZOLAMIDE ER 500 MG CAP (DIAMOX SEQUELS) PO ONE
[2022-08-11] MEDS: TETRACAINE 0.5% OPHTH SOLN 4 ML BTL (SINGLE DOSE ONLY) OU PRN ×4 (09:12→09:27)
[2022-08-11] MEDS: PHENYLEPHRINE 10% OPHTH (NEO-SYN) 5 ML BTL OU SCH ×3 (09:18→09:27)
[2022-08-11] MEDS: TROPICAMIDE 1% OPH SOLN (MYDRIACYL) 15 ML BTL OP SCH ×3 (09:18→09:27)
[2022-08-11 09:20] VITALS: BP 119/65
--- NOTE | 2022-08-11 09:35 | Ophthalmologist Pre-Op Note ---
Pre-Operative Progress Note H&P Reviewed The H&P was reviewed, patient examined and no changes noted. Date H&P Reviewed: Aug 11, 2022 Time H&P Reviewed: 09:35 Pre-Op Dx Cataract, Left Eye JULISSA MIDDLETON MD Aug 11, 2022 09:35
--- NOTE | 2022-08-11 09:58 | Ophthalmology Operative Report ---
Cataract removal/placement IOL PREOPERATIVE DIAGNOSIS: Cataract Left Eye POSTOPERATIVE DIAGNOSIS: Cataract Left Eye PROCEDURE: Cataract removal and placement of posterior chamber implant, left eye SURGEON: Kyrie Middleton ANESTHESIA: Topical with sedation COMPLICATIONS: None ESTIMATED BLOOD LOSS: Minimal DESCRIPTION OF PROCEDURE: After proper informed consent was obtained, the patient, a 77 female, was taken to the Operating Room and the left eye was anesthetized with tetracaine. The left eye was then prepped and draped in the usual manner. A wire lid speculum was placed. A paracentesis was made at the left hand position. Preservative free lidocaine was injected into the anterior chamber followed by viscoelastic. A clear corneal incision was made in the temporal position. A capsulorrhexis was preformed and the central nuclear and cortical material were removed. The posterior capsule was polished and an Dennis 20.0 AU00T0 was placed into the capsular bag. The residual viscoelastic was aspirated and balanced saline solution was injected into the anterior chamber. Moxifloxacin was injected into the anterior chamber. The wound was checked and found to be water tight. The patient tolerated the procedure well without complications. KYRIE MIDDLETON MD Aug 11, 2022 09:58
[2022-08-11 10:04] VITALS: BP 153/53
--- NOTE | 2022-08-11 14:00 | Anesthesia-General Post-Op ---
MAC Patient Condition Mental Status/LOC: Same as Preop Cardiovascular: Satisfactory Nausea/Vomiting: Absent Respiratory: Satisfactory Pain: Controlled Complications: Absent Post Op Complications Complications None Follow Up Care/Instructions Patient Instructions None needed. Anesthesiology Discharge Order Discharge Order Patient is doing well, no complaints, stable vital signs, no apparent adverse anesthesia problems. No complications reported per nursing. JERRY FOOTE CRNA Aug 11, 2022 14:00
== END | disposition home or self-care (01) ==
LOC: SDC 08:53
PROVIDERS: ATTEND Specialist
DX: H25.9 Unspecified age-related cataract (principal); Z95.5 Presence of coronary angioplasty implant and graft; Z79.82 Long term (current) use of aspirin; Z87.891 Personal history of nicotine dependence
CPT/HCPCS: 66984; V2632

== ENCOUNTER → 2022-12-12 | Outpatient (CLI) | payer MEDICARE, OTHER ==
[~2022-12-12] MED LIST changes: +ALBU8.5H6 IH; -MOXIFLOXACIN OPHTH SOLN 5 MG/ML 0.3 ML SYRINGE OP ONE; -POVIDONE (BETADINE) OPHTH SOLN 5% 30 ML OP ONE; -RT-ALBUINH IH; -TIMOLOL MALEATE 0.5% 5 ML (TIMOPTIC) BTL OU PRN; -acetaZOLAMIDE ER 500 MG CAP (DIAMOX SEQUELS) PO ONE
== END ==
LOC: CARD 10:02
PROVIDERS: ATTEND Internal Medicine Cardiovascular Disease
DX: I11.9 Hypertensive heart disease without heart failure (principal); I34.89 Other nonrheumatic mitral valve disorders; I25.10 Atherosclerotic heart disease of native coronary artery without angina pectoris
CPT/HCPCS: 93306

== ENCOUNTER → 2023-03-21 | Outpatient (CLI) | payer MEDICARE, OTHER ==
[~2023-03-21] MED LIST changes: +CATHETER FLUSH 10 ML SYR IVP PRN; +REGADENOSON 0.4 MG/5 ML SYR (LEXISCAN) IV ONE
[2023-03-21 09:56] VITALS: BP 146/73
--- NOTE | 2023-03-21 14:49 | Cardiology Stress Test Report ---
Stress Test Report Date of Procedure/Referring: Date of Procedure: March 21, 2023 PCP Flo Jalloh - [facility] Admitting Physician Admitting Physician: Attending Physician: Angela Gunderson MD Baseline Heart Rate: 82 Baseline Blood Pressure: Blood Pressure Systolic: 146 Blood Pressure Diastolic: 73 Baseline Vitals Vital Signs Date Time Temp Pulse Resp B/P (MAP) Pulse Ox O2 Delivery O2 Flow Rate FiO2 03/21/23 09:56 82 146/73 (97) Baseline EKG: Baseline EKG: NSR Summary After explaining the procedure to the patient, she signed a consent and then brought to the stress nuclear laboratory. Patient received 0.4 mg Lexiscan for stress test, ECG, heart rate and blood pressure were monitored continuously. Resting and stress dose of radio tracer were injected, imaging was acquired and reviewed in short axis, horizontal long axis and vertical long axis views. TID: 0.85 SSS: 8 SDS: 5 EF: 61 Patient tolerated Lexiscan well Increased intestinal uptake with reversible ischemia involving the inferior wall and inferoseptum Normal left ventricular size, ejection fraction 61% Copy Copies To 1: [facility]/ANGELA CURTIS MD March 21, 2023 14:49
== END ==
LOC: CARD 08:30
PROVIDERS: ATTEND Internal Medicine Cardiovascular Disease
DX: I10 Essential (primary) hypertension (principal); I25.10 Atherosclerotic heart disease of native coronary artery without angina pectoris; R07.2 Precordial pain
CPT/HCPCS: 78452; 93017; A9502

== ENCOUNTER 2023-03-28 10:49 | Day surgery (SDC) | payer MEDICARE ==
[2023-03-28] VITALS (13 sets, daily range): BP systolic 109–167; BP diastolic 54–103
[~2023-03-28] VITALS: Ht 157.8 cm; Wt 72.3 kg
[~2023-03-28 10:49] MED LIST changes: -CATHETER FLUSH 10 ML SYR IVP PRN; -REGADENOSON 0.4 MG/5 ML SYR (LEXISCAN) IV ONE
[2023-03-28] MEDS ORDERED: NS IV 1000 ML 1,000 ML ONE (10:57)
[2023-03-28] MEDS ORDERED: LIDOCAINE 1% INJ 20 ML VIAL ONE (10:57)
[2023-03-28] MEDS ORDERED: HEParin (CATH LAB) 2,000 ML IV ONE (10:57)
[2023-03-28] MEDS ORDERED: NS IV 1000 ML 1,000 ML IV SCH (11:00)
[2023-03-28] MEDS ORDERED: ACET325T38 PO (11:43)
[2023-03-28] MEDS ORDERED: ATOR80TA76 PO (11:43)
[2023-03-28] MEDS ORDERED: ASPI-1238 PO (11:43)
--- NOTE | 2023-03-28 11:45 | Diagnostic Imaging Report ---
INDICATION: Abnormal stress test, coronary artery disease. Frontal chest obtained at 11:14 a.m. and compared to 11/16/2021. Heart is normal in size. Calcified granuloma over the right base is again noted. There is no focal infiltrate or pneumothorax or pleural fluid. IMPRESSION: Old granulomatous changes. No acute process in the chest. Dictated by: Dictated on workstation # [id number]
[2023-03-28] MEDS ORDERED: fentaNYL INJ 100 MCG/2 ML AMP ONE (11:46)
[2023-03-28] MEDS ORDERED: HEParin 1000 UNIT/ML (10ML VIAL) FOR BOLUS ONE (11:47)
[2023-03-28] MEDS ORDERED: NITRO DRIP 25000 MCG/D5W 250 ML IV ONE (11:47)
[2023-03-28] MEDS ORDERED: MIDAZOLAM 5 MG/5 ML (VERSED) VIAL ONE (11:47)
[2023-03-28] MEDS ORDERED: VERAPAMIL 5 MG/2 ML (CALAN) VIAL IV ONE (11:47)
--- NOTE | 2023-03-28 11:49 | Cardiac Procedure Note-CS/ASA ---
Pre-Procedure Note Pre-Op Procedure Note Date of Available H&P: March 22, 2023 Date H&P Reviewed: March 28, 2023 Time H&P Reviewed: 11:48 History & Physical: H&P Reviewed, Patient Examed, No changes noted Pre-Operative Diagnosis: CAD Moderate Sedation PreProcedure Time 11:49 ASA Score 3 Airway Lungs Heart ASA score ASA 1: a normal healthy patient ASA 2: a patient with a mild systemic disease (mid diabetes, controlled hypertension, obesity ASA 3: a patient with a severe systemic disease that limits activity (angina, COPD, prior Myocardial infarction) ASA 4: a patient with an incapacitating disease that is a constant threat to life (CHF, renal failure) ASA 5: a moribund patient not expected to survive 24 hrs. (ruptured aneurysm) ASA 6: a declared brain- patient whose organs are being harvested. For emergent operations, add the letter E after the classification Mallampati Classification Grade 3 Sedation Plan Analgesia, Amnesia, Plan communicated to team members, Discussed options with patient/fam, Discussed risks with patient/fam The patient is an appropriate candidate to undergo the planned procedure, sedation, and anesthesia. The patient immediately re-assessed prior to indication. ANGELA GAGNON MD March 28, 2023 11:49
[2023-03-28 11:51] LABS: POTASSIUM 4.1 MMOL/L (3.6-5.0)
[2023-03-28 11:52] LABS: ALBUMIN 4.5 GM/DL (3.2-4.5); INR 0.9 (0.8-1.4); PROTHROMBIN TIME PATIENT 12.8 SEC (12.2-14.7)
[2023-03-28 11:53] LABS: CALCIUM 9.8 MG/DL (8.5-10.1)
[2023-03-28 11:54] LABS: TOTAL PROTEIN 7.5 GM/DL (6.4-8.2)
[2023-03-28 11:56] LABS: BILIRUBIN,TOTAL 0.5 MG/DL (0.1-1.0)
[2023-03-28 11:58] LABS: CREATININE SERUM 1.11 MG/DL (0.60-1.30)
[2023-03-28 12:44] LABS: BASOPHILS # (AUTO) 0.1 10^3/uL (0.0-0.1); BASOPHILS % (AUTO) 1 % (0-10); EOSINOPHILS # (AUTO) 0.2 10^3/uL (0.0-0.3); EOSINOPHILS % (AUTO) 3 % (0-10); HEMATOCRIT 38 % (35-52); HEMOGLOBIN 12.9 g/dL (11.5-16.0); LYMPHOCYTES # (AUTO) 1.9 10^3/uL (1.0-4.0); LYMPHOCYTES % (AUTO) 26 % (12-44); MEAN CORPUSCULAR HEMOGLOBIN 30 pg (25-34); MEAN CORPUSCULAR HGB CONC 34 g/dL (32-36); MEAN CORPUSCULAR VOLUME 88 fL (80-99); MONOCYTES # (AUTO) 0.7 10^3/uL (0.0-1.0); MONOCYTES % (AUTO) 10 % (0-12); NEUTROPHILS # (AUTO) 4.4 10^3/uL (1.8-7.8); NEUTROPHILS % (AUTO) 61 % (42-75); PLATELET COUNT 258 10^3/uL (130-400); WHITE BLOOD COUNT 7.3 10^3/uL (4.3-11.0)
[2023-03-28] MEDS ORDERED: ASPIRIN 325 MG (5 GR) TABLET ONE (13:13)
[2023-03-28] MEDS ORDERED: CLOPIDOGREL 300 MG (PLAVIX) TABLET PO ONE (13:13)
--- NOTE | 2023-03-28 13:25 | Cardiac Cath Report ---
Cardiac Cath Report Physician (s)/Professor Of Psychology (s) Physician ANGELA GAGNON MD Pre-Procedure Diagnosis Pre-Procedure Diagnosis: CAD Post-Procedure Note Procedure Start Date: March 28, 2023 Name of Procedure: Left heart catheterization Stenting of the right coronary artery Findings/Procedure Note PROCEDURE NOTE: 77-year-old lady with history of hypertension, hyperlipidemia, CVA, had an abnormal stress test, scheduled for cardiac catheterization possible PTCA. After explaining the procedure to the patient, all pros and cons were explained, all questions were answered. The patient signed the consent and then she was placed in the cardiac catheterization laboratory. Groin was prepped in SL fashion local anesthesia was used. Sheath placed in the right radial artery, Rector catheter was used, I used baby J-wire due to tortuosity in the brachial artery, advanced the catheter to the left ventricular cavity, pressure was measured, pullback LV to aorta was done, engage the left and right coronary system and angiogram was done. Patient had 95 ostial right coronary artery stenosis. Short tip Myriam right guide was used, BMW wire was advanced and parked distally Predilatation with 2.5 x 20 mm balloon, the lesion was resistant required higher pressure Orsiro 2.5 x 13 mm was deployed up to 2.8 mm under 15 ольга, angiogram showed excellent results, 0% residual stenosis At the end of the procedure the sheath was removed. Vascular band was used FINDINGS: Hemodynamics LV 110/10, end-diastolic pressure of 10 Aorta 110/59 mean of 52 ANATOMY: Left Main is free of obstructive disease Left Anterior Descending has mild ectasia with no obstructive disease Left Circumflex is dominant artery with mild ectasia with no obstructive disease Right Coronary Artery is nondominant artery with 95% ostial stenosis successful deployment of Orsiro drug-eluting stent 2.5 x 13 mm expanded to 2.8 mm with 0% residual stenosis LV Gram was not done, pressure was measured Aorta was not done PERCUTANEOUS INTERVENTION: Pre stenosis 95% Post Stenosis 0% Pre GODFREY flow 2 Post GODFREY flow 3 Dominance left circumflex artery CONCLUSION: 95% ostial right coronary artery stenosis successful deployment of Orsiro 2.5 x 13 mm expanded to 2.8 mm Dominant circumflex artery with ectasia in the left coronary system nonobstructive disease Normal left ventricular end-diastolic pressure DISCUSSION AND RECOMMENDATION: Continue maximizing medical therapy Anesthesia Type: Conscious Sedation Estimated blood loss (mL): 20 ml Contrast Amount: 76 ml Total Radiation Dose: 623 mGy Post-Procedure Diagnosis Post-operative diagnosis: Chest pain Coronary artery disease Hypertension Hyperlipidemia ANGELA GAGNON MD March 28, 2023 13:25
[2023-03-28] MEDS ORDERED: ACETAMINOPHEN 325 MG TABLET PO PRN (13:30)
[2023-03-28] MEDS: NS IV 1000 ML 1,000 ML IV SCH ×2 (13:59→20:00)
[2023-03-29] MEDS ORDERED: LEVOTHYROXINE 88 MCG (LEVOTHORID) TAB PO SCH (06:30)
[2023-03-29 06:56] LABS: HEMATOCRIT 36 % (35-52); MEAN CORPUSCULAR HEMOGLOBIN 30 pg (25-34); MEAN CORPUSCULAR HGB CONC 34 g/dL (32-36); MEAN CORPUSCULAR VOLUME 89 fL (80-99); MEAN PLATELET VOLUME 10.9 fL (9.0-12.2); PLATELET COUNT 217 10^3/uL (130-400); WHITE BLOOD COUNT 6.5 10^3/uL (4.3-11.0)
[2023-03-29 07:14] LABS: CALCIUM 9.6 MG/DL (8.5-10.1); CREATININE SERUM 0.96 MG/DL (0.60-1.30)
--- NOTE | 2023-03-29 07:40 | Discharge Inst-Post CATH ---
Discharge Inst-CATH/EP Problems Reviewed?: Yes Post Cardiac Cath/EP D/C Inst Follow Up/Plan Appointment with Dr. Gunderson's office in 2 weeks <b>CARDIAC CATH/EP PROCEDURE DISCHARGE INSTRUCTIONS</b> ACTIVITY * Go Home directly and rest. * Limit activity of the leg (or wrist if it was used) for 7 days including aerobics, swimming, jogging, bicycling, etc. * Restrict stair-climbing for 7 days if possible, if not, climb up with your non-cath leg, then bring together on the same step. * Avoid lifting, pushing, pulling or excessive movement of the affected extremity for 7 days. * Customary sexual activity may be resumed after 2 days-use caution not to use a position that strains or causes pain to the affected extremity. * No driving for 24 hours. * NO SMOKING. * Avoid straining for bowel movements for 7 days. * Gentle walking on level ground is allowed. * Returning to work will depend on the type of procedure and the results. Your doctor will discuss this with you. CALL YOUR DOCTOR FOR ANY OF THE FOLLOWING: *If bleeding from the puncture site occurs- Apply gentle pressure to site with clean cloth and call your doctor or EMS. * If a knot or lump forms under the skin, increases in size, or causes pain. * If bruising appears to be worsening or moving further down your leg instead of disappearing. * Temperature above 101 F. CARE OF YOUR GROIN INCISION; * Bruising or purple discoloration of the skin near the puncture site is common. * You may shower only, no bathtub bathing for 5 days. Be careful to avoid slipping as your leg may feel stiff. * If a closure device was used on your femoral artery, please see the attached guide regarding care of the device and your leg. * Leave dressing on FOR 24 hours. CARE OF YOUR WRIST INCISION; * Bruising or purple discoloration of the skin near the puncture site is common. * You may shower. * DO NOT submerge wrist. * Leave dressing on FOR 24 hours. ANGELA GUNDERSON MD March 29, 2023 07:40
[2023-03-29 07:56] VITALS: BP 129/65
--- NOTE | 2023-03-29 08:16 | Cardiology Progress Note ---
Subjective Date Seen by Provider: March 29, 2023 Time Seen by Provider: 08:15 Subjective/Events-last exam Patient was seen at bedside, laying down comfortably, feeling better Review of Systems General: No Chills, No Night Sweats, No Fatigue, No Malaise, No Appetite, No Other HEENT: No Head Aches, No Visual Changes, No Eye Pain, No Ear Pain, No Dysphasia, No Sinus Congestion, No Post Nasal Drip, No Sore Throat, No Other Pulmonary: No Dyspnea, No Cough, No Pleuritic Chest Pain, No Other Cardiovascular: No: Chest Pain, Palpitations, Orthopnea, Paroxysmal Noc. Dyspnea, Edema, Lt Headedness, Other Objective-Cardiology Exam Last Set of Vital Signs Vital Signs 03/28/23 03/29/23 22:13 07:56 Temp 36.4 Pulse 98 Resp 20 B/P (MAP) 129/65 (86) Pulse Ox 92 O2 Delivery Room Air O2 Flow Rate 2.00 General: Alert, Oriented X3, Cooperative HEENT: Atraumatic, PERRLA Neck: Supple, No JVD, No Thyromegaly Lungs: Clear to Auscultation, Normal Air Movement Heart: Regular Rate, Normal S1, Normal S2, No Murmurs Abdomen: Normal Bowel Sounds, Soft, No Tenderness, No Hepatosplenomegaly, No Masses Extremities: No Clubbing, No Cyanosis, No Edema, Normal Pulses, No Tenderness/Swelling Skin: No Rashes, No Breakdown, No Significant Lesion Neuro: Normal Gait, Normal Speech, Strength at 5/5 X4 Ext, Normal Tone, Sensation Intact Psych/Mental Status: Mental Status NL, Mood NL Results Lab Laboratory Tests 03/28/23 11:23 03/29/23 04:04 A/P-Cardiology Admission Diagnosis Coronary artery disease Hypertension Hyperlipidemia Chest pain Assessment/Plan Coronary artery disease, status postcardiac catheterization and stenting to the ostial right coronary artery No residual stenosis Continue on aspirin and Plavix Hypertension, monitor blood pressure Hyperlipidemia, monitor lipids Chest pain, reporting improvement. ANGELA GAGNON MD March 29, 2023 08:16
[2023-03-29] MEDS ORDERED: LOSARTAN 100 MG (COZAAR) TABLET PO SCH (09:00)
[2023-03-29] MEDS ORDERED: PANTOPRAZOLE 20 MG TABLET (PROTONIX) PO SCH (09:00)
[2023-03-29] MEDS ORDERED: amLODIPine 10 MG (NORVASC) TAB PO SCH (09:00)
[2023-03-29] MEDS ORDERED: TERAZOSIN 1 MG CAP (HYTRIN) PO SCH (09:00)
[2023-03-29] MEDS ORDERED: ASPIRIN E.C. 81 MG (ECOTRIN) TAB PO SCH (09:00)
[2023-03-29] MEDS ORDERED: CLOPIDOGREL 75 MG (PLAVIX) TABLET PO SCH ×2 (09:00)
== END 2023-03-29 09:15 | disposition home or self-care (01) ==
LOC: CATH 10:49 → CSD 13:30 → CATH 03-29 09:15
PROVIDERS: ATTEND Internal Medicine Cardiovascular Disease
DX: I25.10 Atherosclerotic heart disease of native coronary artery without angina pectoris (principal); I10 Essential (primary) hypertension; E78.5 Hyperlipidemia, unspecified; I12.9 Hypertensive chronic kidney disease with stage 1 through stage 4 chronic kidney disease, or unspecified chronic kidney disease; E78.2 Mixed hyperlipidemia; I65.23 Occlusion and stenosis of bilateral carotid arteries; I49.8 Other specified cardiac arrhythmias; E03.9 Hypothyroidism, unspecified; N18.9 Chronic kidney disease, unspecified; K21.9 Gastro-esophageal reflux disease without esophagitis; Z79.82 Long term (current) use of aspirin; Z79.02 Long term (current) use of antithrombotics/antiplatelets; Z87.891 Personal history of nicotine dependence; Z86.73 Personal history of transient ischemic attack (TIA), and cerebral infarction without residual deficits; Z79.899 Other long term (current) drug therapy
CPT/HCPCS: 71045; 80048; 80053; 80061; 85025; 85027; 85347; 85610; 85730; 87081; 93005 ×2; 93458; C1725; C1769 ×2; C1874; C1894; C9600; 36415

== ENCOUNTER 2023-10-03 20:45 | Outpatient (CLI) | payer MEDICARE, OTHER ==
[~2023-10-03 20:45] MED LIST changes: +ACET325T38 PO; -LOSA100T57 PO; +LOSA100T58 PO
== END 2023-10-04 06:14 ==
LOC: SLEEP 20:45
PROVIDERS: ATTEND Internal Medicine Cardiovascular Disease
DX: R06.83 Snoring (principal); G47.36 Sleep related hypoventilation in conditions classified elsewhere; I10 Essential (primary) hypertension; I49.9 Cardiac arrhythmia, unspecified
CPT/HCPCS: 95810